=== PATIENT | female | born 1955 | race Caucasian/White ===

== ENCOUNTER → 2017-01-12 | Outpatient (CLI) | payer OTHER ==
--- NOTE | 2017-01-12 10:18 | MM ---
Reason for exam: screening (asymptomatic). Baseline mammogram. History: Patient is postmenopausal. Physical Findings: Nurse did not find any significant physical abnormalities on exam. MG Screening Mammo w CAD Bilateral CC and MLO view(s) were taken. There are scattered fibroglandular densities. Finding #1: Architectural distortion in the upper quadrant, anterior middle position of the right breast. Finding #2: There are typically benign round calcifications in both breasts. ASSESSMENT: Incomplete: need additional imaging evaluation, BI-RAD 0 RECOMMENDATION: Special view mammogram and ultrasound of the right breast. [facility] will attempt to contact patient to return for supplemental views and ultrasound.
== END | disposition home or self-care (01) ==
LOC: RADMAMWWP 09:19
PROVIDERS: ATTEND Family Medicine
DX: Z12.31 Encounter for screening mammogram for malignant neoplasm of breast (principal); R92.2 Inconclusive mammogram

== ENCOUNTER → 2017-01-16 | Outpatient (CLI) | payer OTHER ==
--- NOTE | 2017-01-16 08:39 | MM ---
Reason for exam: additional evaluation requested from abnormal screening. Last mammogram was performed less than 1 month ago. History: Patient is postmenopausal. Physical Findings: Nurse did not find any significant physical abnormalities on exam. MG Work Up Mamm w CAD RT Spot compression CC and spot compression MLO view(s) were taken of the right breast. Prior study comparison: January 12, 2017, bilateral MG screening mammo w CAD. Spiculated masses x 2 upper central right breast. These results were verbally communicated with the patient and result sheet given to the patient on 01/16/17. ASSESSMENT: Incomplete: need additional imaging evaluation, BI-RAD 0 RECOMMENDATION: Ultrasound of the right breast.
--- NOTE | 2017-01-16 08:42 | USB ---
Reason for exam: additional evaluation requested from abnormal screening. History: Patient is postmenopausal. US Breast Workup Limited RT Right breast ultrasound demonstrates a 1.1 x 0.7 x 0.8cm irregular, spiculated, solid, hypoechoic lesion with shadowing at 12 o'clock for which a biopsy is recommended and a 0.9 x 0.6 x 0.8cm irregular, spiculated, solid, hypoechoic lesion with shadowing at 1 o'clock for which a biopsy is recommended. These results were verbally communicated with the patient and result sheet given to the patient on 01/16/17. ASSESSMENT: Highly suggestive of malignancy, BI-RAD 5 RECOMMENDATION: Ultrasound core biopsy of the right breast. (x 2) Called Dr. Hagen with mammographic findings and has scheduled an appointment for the patient for 01/19/17 at 11:[address] Felix. PRELIMINARY REPORT CALLED AND FAXED TO DR. FELIX ON 01/16/17 AT 300/TP.
== END | disposition home or self-care (01) ==
LOC: RADMAMWWP 06:57
PROVIDERS: ATTEND Family Medicine
DX: R92.8 Other abnormal and inconclusive findings on diagnostic imaging of breast (principal)
CPT/HCPCS: 76642; G0206

== ENCOUNTER → 2017-01-24 | Day surgery (SDC) | payer OTHER ==
[~2017-01-24] MED LIST: BACITRACIN OINT 1 EACH PACKET TOPICAL ONE; LIDOCAINE 1% INJ 10MG/ML (20 ML MDV) ONE; LIDOCAINE 1%-EPI 1:100,000 20 ML VIAL ONE; SODIUM BICARB 4% 5 ML VIAL (0.48 MEQ/ML) ONE
--- NOTE | 2017-01-24 11:03 | USB ---
EXAMINATION TYPE: US biopsy breast VAD RT (2 sites), US biopsy breast RT axilla, MG diagnostic post biopsy mammo RT wo CAD DATE OF EXAM: 01/24/2017 9:53 AM CLINICAL HISTORY: 61-year-old female R92.8 abn mammo. TECHNIQUE: Ultrasound guided core biopsy of 2 sites in the superior right breast as well as a right axillary lymph node. COMPARISON: 01/12/2017 and 01/16/2017. FINDINGS: The procedure of ultrasound guided core biopsy was explained to the patient. Benefits, alternatives, and risks were discussed. An informed consent was then obtained. The patient was placed in supine positioning for imaging and for the procedure. The overlying skin was prepped and draped in usual sterile fashion. Lidocaine buffered with bicarbonate was used as anesthetic into the skin and subcutaneous tissue up to area of concern in the right breast. 1.) 12:00 suspicious lesion -- Under ultrasound guidance, a 13-gauge vacuum- assisted Mammotome Elite biopsy gun was used to obtain 4 core samples. Following this, a coil clip was left in lesion. 2.) 1:00 suspicious lesion -- Under ultrasound guidance, a 13-gauge vacuum- assisted Mammotome Elite biopsy gun was used to obtain 6 core samples. Following this, a ribbon clip was left in lesion. 3.) Focal cortical nodularity right axillary lymph node --for deeper anesthesia , lidocaine/epinephrine mixture was utilized to minimize bleeding. Under ultrasound guidance, a 13-gauge vacuum-assisted Mammotome Elite biopsy gun was used to obtain 6 core samples. Following this, a wing clip was left in lesion. The patient tolerated the procedure well without any immediate complication. The patient was kept in the radiology department for short stay after the procedure and then discharged home in stable condition. Postprocedure mammogram shows the coil and ribbon clips in place. These are located approximately 1.9 cm away from each other. The wing clip is not seen at the axilla. IMPRESSION: Successful, uncomplicated ultrasound guided core biopsy of 3 sites in the right breast; full pathology results to follow. a.) suspicious right 12:00 b.) suspicious right 1:00 c.) equivocal nodular right axillary node cortex Pathology Results: Malignant A. 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 SEE SURGICAL PATHOLOGY CANCER CASE SUMMARY AND COMMENT. B. BREAST, RIGHT ONE O'CLOCK, CORE BIOPSY: WELL DIFFERENTIATED INVASIVE DUCTAL CARCINOMA. FOCAL ATYPICAL DUCTAL HYPERPLASIA. SEE SURGICAL PATHOLOGY CANCER CASE SUMMARY AND COMMENT. C. RIGHT AXILLA, CORE BIOPSY: FRAGMENTS OF A BENIGN LYMPH NODE. CK7 AND MARISSA IMMUNOPEROXIDASE STAINS ARE CONFIRMATORY (CONTROLS APPROPRIATE). Recommendation Surgical consult of the right breast. MTDD
== END ==
LOC: RADUSWWP 07:14
PROVIDERS: ATTEND Surgery
DX: C50.811 Malignant neoplasm of overlapping sites of right female breast (principal); C50.211 Malignant neoplasm of upper-inner quadrant of right female breast; N60.91 Unspecified benign mammary dysplasia of right breast; R92.8 Other abnormal and inconclusive findings on diagnostic imaging of breast
CPT/HCPCS: 38505; 88305; 88342; 88341; 19083; 19084; G0206; A4648; J2001; 71020; 99212

== ENCOUNTER → 2017-02-01 | Outpatient (CLI) | payer OTHER ==
--- NOTE | 2017-02-01 10:52 | XR ---
EXAMINATION TYPE: XR chest 2V DATE OF EXAM: 02/01/2017 10:42 AM COMPARISON: NONE TECHNIQUE: PA and lateral views submitted. HISTORY: Cough FINDINGS: The lungs are clear and there is no pneumothorax, pleural effusion, or focal pneumonia. Hyperinflati on suggests COPD. Degenerative change of the spine. IMPRESSION: 1. No acute process.
== END | disposition home or self-care (01) ==
LOC: RADXRMAIN 10:30
PROVIDERS: ATTEND Surgery
DX: R05 Cough (principal)
CPT/HCPCS: 71020

== ENCOUNTER 2017-02-20 08:51 | Day surgery (SDC) | payer OTHER ==
[2017-02-15 12:53] VITALS: BMI 20.5
[~2017-02-20 08:51] MED LIST changes: -BACITRACIN OINT 1 EACH PACKET TOPICAL ONE; +DEXAMETHASONE SOD PHOSPHATE 10 MG/ML 1 ML VIAL IV ONE; +HEPARIN SODIUM,PORCINE 5,000 UNIT/ML 1 ML VIAL SQ ONE; +HYDROmorphone 1 MG/ML 1 ML SYRINGE IVP PRN; +LACTATED RINGERS 1,000 ML IV SCH; -LIDOCAINE 1% INJ 10MG/ML (20 ML MDV) ONE; -LIDOCAINE 1%-EPI 1:100,000 20 ML VIAL ONE; +METHYLENE BLUE 50 MG/10 ML AMPUL ONE; +MIDAZOLAM 2 MG/2 ML VIAL IV PRN; +ONDANSETRON 4 MG/2 ML VIAL IVP ONE; +Pre Op ABX Message 1 EACH MISC MISCELLANE ONE; -SODIUM BICARB 4% 5 ML VIAL (0.48 MEQ/ML) ONE
[2017-02-20] MEDS ORDERED: SODIUM BICARB 4% 5 ML VIAL (0.48 MEQ/ML) MISCELLANE ONE (10:12)
[2017-02-20] MEDS ORDERED: LIDOCAINE 1% INJ 10MG/ML (20 ML MDV) SQ ONE (10:12)
--- NOTE | 2017-02-20 10:49 | NM ---
EXAMINATION TYPE: NM sentinel node injection DATE OF EXAM: 02/20/2017 10:42 AM COMPARISON: NONE HISTORY: Right breast carcinoma TECHNIQUE AND FINDINGS: The procedure of sentinel lymph node injection was explained to the patient. The benefits, alternatives, and risks were discussed. An informed consent was then obtained. Overlying skin is cleaned with sterile alcohol. Lidocaine buffered with bicarbonate was used as anes thetic into the skin and subcutaneous tissue surrounding the nipple. Following this, 550 uCi Tc 99m Filtered Sulfur Colloid was injected into 4 equivalent doses at 12, 3, 6, and 9:00 position surroundi ng the right nipple intradermally. The injection sites were massaged by nuclear powerplant supervisor for 10 minutes after injection. T he patient tolerated the procedure well without any immediate complication. The patient was kept in the radiology department for short stay after the procedure and then taken to surgery for surgical pr ocedure what is presumed intraoperative gamma probe will be used for sentinel lymph node detection. IMPRESSION: Right breast radiotracer injection for sentinel node localization as above.
[2017-02-20] MEDS ORDERED: MIDAZOLAM 2 MG/2 ML VIAL ONE (12:55)
[2017-02-20] MEDS ORDERED: SUCCINYLCHOLINE CHLORIDE 100 MG/5 ML SYR IV ONE (12:55)
[2017-02-20] MEDS ORDERED: PHENYLEPHRINE-0.9% NACL SYG 1 MG/10 ML SYRINGE ONE (12:55)
[2017-02-20] MEDS ORDERED: ePHEDrine 50 MG/ML 1 ML AMP ONE (12:55)
[2017-02-20] MEDS ORDERED: fentaNYL (PF) 50 MCG/ML 2 ML AMP ONE (12:55)
[2017-02-20] MEDS ORDERED: PROPOFOL 10 MG/ML 20 ML VIAL IV ONE (12:55)
[2017-02-20] MEDS ORDERED: HYDROmorphone (PF) 1 MG/ML ONE (12:55)
[2017-02-20] MEDS ORDERED: HEPARIN SODIUM,PORCINE 5,000 UNIT/ML 1 ML VIAL SQ ONE (12:56)
[2017-02-20] MEDS ORDERED: METHYLENE BLUE 10 MG/ML 1 ML VIAL MISCELLANE ONE (13:15)
[2017-02-20] MEDS ORDERED: SODIUM CHLORIDE 0.9% 100 ML with ceFAZolin 2,000 MG IV ONE ×2 (13:24)
--- NOTE | 2017-02-20 14:09 | MM ---
EXAMINATION TYPE: MG pre op needle loc RT DATE OF EXAM: 02/20/2017 10:24 AM COMPARISON: NONE CLINICAL HISTORY: Abnormal right breast biopsy TECHNIQUE: Needle localization with wire placement and surgical excision of area of concern in the right breast. FINDINGS: The procedure of needle localization with wire placement and than surgical excision was explained to the patient. Benefits, alternatives, and risks were discussed. An informed consent was then obtained. The shortest pathway for procedure was chosen. Shortest pathway was superior approach. The overlying skin was prepped and draped in usual sterile fashion. Lidocaine buffered with bicarbonate was used as anesthetic into the skin and subcutaneous tissue up to the level of area of concern. A 7 cm needle was used for each biopsy clip marker. The 2 clips were bracketed as requested by the surgeon. It was placed via a superior approach under mammographic guidance. Subsequent 90 degrees mammogram show the needles to be in satisfactory position relative to the targeted area. At this point, wire was placed and the needle was withdrawn. The wire was fixed to patient's skin. Images were marked for surgeon. The patient tolerated the procedure well without any immediate complication. The patient was kept in the radiology department for short stay after the procedure and then taken to surgery for surgical excision. Targeted to site biopsy clip and wire are identified in specimen mammogram. The patient was kept in hospital for short stay after the procedure and then discharged home in stable condition. IMPRESSION: Successful, uncomplicated needle localization with wire placement and surgical excision of 2 site biopsy clips in the right breast, full pathology results to follow. Pathology Results: Malignant A. LYMPH NODE, SENTINEL #1, BIOPSY: TWO LYMPH NODES NEGATIVE FOR METASTASIS, CYTOKERATIN 7 AND MARISSA IMMUNOHISTOCHEMICAL STAINS ARE CONFIRMATORY (CONTROLS APPROPRIATE). B. LYMPH NODE, SENTINEL #2, BIOPSY: TWO LYMPH NODES NEGATIVE FOR METASTASIS, CYTOKERATIN 7 AND MARISSA IMMUNOHISTOCHEMICAL STAINS ARE CONFIRMATORY (CONTROLS APPROPRIATE). C. LYMPH NODE, PALPABLE, BIOPSY: THREE LYMPH NODES NEGATIVE FOR METASTASIS, CYTOKERATIN 7 AND MARISSA IMMUNOHISTOCHEMICAL STAINS ARE CONFIRMATORY (CONTROLS APPROPRIATE). FOCAL FEATURES CONSISTENT WITH BIOPSY SITE CHANGE. ADDENDUM REPORT D. 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 DCIS INVOLVES THE MARGINS MULTIFOCALLY. SEE SURGICAL PATHOLOGY CANCER CASE SUMMARY AND COMMENT. E. BREAST, RIGHT, NEW LATERAL MARGIN: DUCTAL CARCINOMA IN SITU MUCH LESS THAN 1 FROM THE NEW LATERAL MARGIN, SEE COMMENT. FIBROCYSTIC CHANGES AND A SMALL INTRADUCTAL PAPILLOMA. F. BREAST, RIGHT, NEW INFERIOR MARGIN: FOCAL ATYPICAL DUCTAL HYPERPLASIA AND FIBROCYSTIC CHANGES INCLUDING FIBROADENOMATOID HYPERPLASIA. SEE COMMENT. Recommendation Surgical consult of the right breast. KELI
[2017-02-20] MEDS ORDERED: LACTATED RINGERS 1,000 ML IV ONE (14:50)
--- NOTE | 2017-02-20 15:03 | P.OP ---
Date of Procedure: 02/20/17 Preoperative Diagnosis: Breast cancer right Postoperative Diagnosis: Same Procedure(s) Performed: Lymphatic mapping of the right axilla, right lumpectomy with oncoplastic tissue rearrangement and biozorb placement, sentinel node biopsy Anesthesia: BRENT Surgeon: Adelita Felix Estimated Blood Loss (ml): 5 IV fluids (ml): 700 Pathology: other (Right breast lumpectomy specimen, sentinel lymph node) Condition: stable Disposition: PACU Indications for Procedure: Right breast positive core biopsy for cancer at 12:00 and 1:00 Operative Findings: Dense breast tissue Description of Procedure: Patient was taken to the operating room and following induction of anesthesia the periareolar area was prepped using alcohol. 5 mL of half-strength methylene blue was injected into the periareolar tissue and the breast was massaged. Following this the breast was prepped and draped in a sterile fashion. The area of the lumpectomy was addressed first. An incision was made near the area of the needles and wide excision was performed around these needles. The breast tissue was interrogated using the margin probe and the lateral margin was positive lateral margin was obtained. Following this a new inferior margin was obtained as well. Both of these areas were painted. The original specimen was painted for orientation. It was sent to x-ray and confirmation area of concern about removed was obtained. Following this after assured that hemostasis was attained onco-PLASTIC tissue techniques were utilized to free the tissue from the underlying skin and subcutaneous tissue superiorly and inferiorly. This was done approximately 4 cm cephalad and 3 cm inferiorly additionally the length of the tissue plane was approximately 5 cm. Therefore approximately 35 cm of tissue was freed. The lateral tissues were reapproximated using 3-0 Vicryl suture. A biozorb sizing device was utilized and a 3 x 2 cm BioSorb was chosen for placement. This was placed in the opening a pocket and secured in place using 3-0 Vicryl suture. The breast tissue was closed over this area using 3-0 Vicryl suture. Should be noted that the original dissection was performed down to the pectoralis muscle of the chest wall. The skin was then closed using 4-0 Monocryl. This is followed by closure with 3-0 nylon suture. The axilla was approached. The neoprobe was used to identify the brachial incision. A small incision was made and carried into the axillary tissue. 2 axillary lymph nodes were identified. Axillary node #1 had a 10 second count of 2947 and was blue axillary node #210 second count of 3245 was blue also. Please note that there was a palpable lymph node identified and this was removed as well. Frozen section on the lymph nodes were negative for cancer. After assured that hemostasis was attained. 3-0 vicryl was used to close the deep tissues. The skin was closed using 4-0 Monocryl. The patient tolerated the procedure in stable condition. All instrument and sponge counts were correct at the end of the case.
--- NOTE | 2017-02-20 15:04 | P.DS ---
Providers Attending physician: Adelita Felix Primary care physician: Isaias Hagen Plan - Discharge Summary Discharge Medication List ALPRAZolam [Xanax] 0.25 - 1 tab PO BID PRN 02/15/17 [History] Aspirin [Adult Low Dose Aspirin EC] 81 mg PO DAILY 02/15/17 [History] Citalopram Hydrobromide [CeleXA] 10 mg PO HS 02/15/17 [History] Levothyroxine Sodium [Synthroid] 50 mcg PO MOTUWETHFR 02/15/17 [History] Levothyroxine Sodium [Synthroid] 50 mcg PO SUSA 02/15/17 [History] Losartan/Hydrochlorothiazide [Losartan-Hctz 100-25 mg Tab] 1 each PO 1700 [History] Follow up Appointment(s)/Referral(s): Adelita Felix MD [STAFF PHYSICIAN] - 1 Week Activity/Diet/Wound Care/Special Instructions: Do not drive until seen by Dr. Stewart Patient may shower after 48 hours Wear bra at all times Discharge Disposition: HOME SELF-CARE
[2017-02-20 15:23] VITALS: TEMP 98.6
[2017-02-20 15:33] VITALS: RESP 18
[2017-02-20] MEDS ORDERED: KETOROLAC 30 MG/ML 1 ML VIAL IVP ONE (15:40)
[2017-02-20] MEDS ORDERED: PROMETHAZINE INJ 25 MG/ML 1 ML VIAL IVPB ONE ×2 (16:38→16:41)
[2017-02-20] MEDS ORDERED: HYDROcodone/APAP 5-325MG 1 EACH TAB PO ONE (16:50)
[2017-02-20 17:43] VITALS: BP 126/48; PULSE 68
== END 2017-02-20 17:43 | disposition home or self-care (01) ==
LOC: OR 08:51
PROVIDERS: ATTEND Surgery
DX: C50.811 Malignant neoplasm of overlapping sites of right female breast (principal); R92.8 Other abnormal and inconclusive findings on diagnostic imaging of breast; Z80.3 Family history of malignant neoplasm of breast; R05 Cough; I10 Essential (primary) hypertension; F32.9 Major depressive disorder, single episode, unspecified; F41.1 Generalized anxiety disorder; E03.9 Hypothyroidism, unspecified; Z79.899 Other long term (current) drug therapy; F17.200 Nicotine dependence, unspecified, uncomplicated
CPT/HCPCS: 88305; 88342; 88331; 88332; 88307; 88341; 76098; 19281; 19282; 38792; 19301; 15777; 38525; C1713; A9541; J2250; J1644; J1100; J2550; J2405; J0690; J2001; J3010; J1885; J1170; J2370; J0330; J2704; Q9968

== ENCOUNTER 2017-03-27 09:43 | Observation (INO) | payer OTHER ==
[2017-03-23 12:53] VITALS: BMI 20.7
[~2017-03-27 09:43] MED LIST changes: -HYDROmorphone 1 MG/ML 1 ML SYRINGE IVP PRN; +LIDOCAINE 1% 20 ML VIAL (10MG/ML) FOR IV START INTRADERMA PRN; -METHYLENE BLUE 50 MG/10 ML AMPUL ONE; +SCOPOLAMINE 1.5MG/72HR PATCH TRANSDERM ONE
[2017-03-27] MEDS ORDERED: HEPARIN SODIUM,PORCINE 5,000 UNIT/ML 1 ML VIAL SQ ONE (11:47)
[2017-03-27] MEDS ORDERED: ONDANSETRON 4 MG/2 ML VIAL ONE (11:55)
[2017-03-27] MEDS ORDERED: fentaNYL (PF) 50 MCG/ML 2 ML AMP ONE (11:55)
[2017-03-27] MEDS ORDERED: SUCCINYLCHOLINE CHLORIDE VIAL 200 MG/10 ML VIAL IV ONE (11:55)
[2017-03-27] MEDS ORDERED: MIDAZOLAM 2 MG/2 ML VIAL ONE (11:55)
[2017-03-27] MEDS ORDERED: LIDOCAINE 1% INJ 10MG/ML (20 ML MDV) ONE (11:55)
[2017-03-27] MEDS ORDERED: PROPOFOL 10 MG/ML 20 ML VIAL IV ONE (11:55)
[2017-03-27] MEDS ORDERED: SODIUM CHLORIDE 0.9% 50 ML with ceFAZolin 1,000 MG IV ONE ×2 (12:03)
[2017-03-27] MEDS ORDERED: LACTATED RINGERS 1,000 ML IV ONE ×2 (12:28)
--- NOTE | 2017-03-27 13:07 | P.OP ---
Date of Procedure: 03/27/17 Preoperative Diagnosis: Right breast multifocal cancer Postoperative Diagnosis: Same Procedure(s) Performed: Right simple mastectomy Anesthesia: BRENT Surgeon: Adelita Felix Estimated Blood Loss (ml): 40 IV fluids (ml): 700 Pathology: other (Right breast) Condition: stable Disposition: PACU Indications for Procedure: Patient with a lumpectomy revealing multifocal breast cancer positive DCIS at margins Operative Findings: Fibrocystic breast tissue Description of Procedure: Patient is a 61-year-old white female who is status post right breast lumpectomy for biopsy-proven invasive ductal carcinoma. The tumor was noted at 2 sites in the breast and the patient wanted to have an attempt at a lumpectomy. The sites were somewhat close to each other. She underwent a lumpectomy however pathology revealed DCIS at the margins. After discussion and presentation at tumor board it was determined that she would undergo a simple mastectomy. Patient was taken to the operating room and following induction of general anesthesia the right breast was prepped and draped in a sterile fashion. Superior and inferior skin flaps were developed. These were carried down to the chest wall being careful to maintain hemostasis using the electrocautery device and the LigaSure. The breast was taken from medial to lateral from off the fascia of the chest wall. After we were assured that hemostasis was attained the wound was well irrigated. The ALLY drain was placed. The skin was then reapproximated with a deep tissues being reapproximated using 3-0 Vicryl interrupted sutures. The skin was closed using 4-0 Monocryl. The drain was secured using a nylon suture. The patient tolerated the procedure in stable condition. All instrument and sponge counts were correct at the end of the case.
[2017-03-27] MEDS ORDERED: NALOXONE 0.4 MG/ML 1 ML VIAL IV PRN (13:08)
[2017-03-27] MEDS ORDERED: HYDROmorphone 1 MG/ML 1 ML SYRINGE IV PRN (13:08)
[2017-03-27] MEDS ORDERED: HYDROcodone/APAP 5-325MG 1 EACH TAB PO PRN (13:08)
[2017-03-27] MEDS: HYDROmorphone 1 MG/ML 1 ML SYRINGE IVP PRN ×3 (13:39→13:59)
[2017-03-27] MEDS ORDERED: LEVOTHYROXINE 50 MCG TAB PO SCH (17:00)
[2017-03-27] MEDS ORDERED: HYDROCHLOROTHIAZIDE 12.5 MG CAP PO SCH (17:30)
[2017-03-27] MEDS: ONDANSETRON 4 MG/2 ML VIAL IVP PRN (18:01)
[2017-03-27] MEDS: DEXTROSE 5%-0.45% NACL 1,000 ML IV SCH (18:03)
[2017-03-27] MEDS: HEPARIN SODIUM,PORCINE 5,000 UNIT/ML 1 ML VIAL SQ SCH (18:12)
[2017-03-27] MEDS: LOSARTAN 50 MG TAB PO SCH ×2 (18:14→18:16)
[2017-03-28] MEDS: ONDANSETRON 4 MG/2 ML VIAL IVP PRN (00:02)
[2017-03-28] MEDS: HEPARIN SODIUM,PORCINE 5,000 UNIT/ML 1 ML VIAL SQ SCH ×2 (00:02→09:12)
[2017-03-28 00:15] VITALS: PULSE 76
[2017-03-28] MEDS: ACETAMINOPHEN TAB 325 MG TAB PO PRN ×2 (04:06→09:29)
[2017-03-28] MEDS: DEXTROSE 5%-0.45% NACL 1,000 ML IV SCH (04:06)
[2017-03-28 09:03] VITALS: BP 120/71; RESP 16; TEMP 98.1
--- NOTE | 2017-03-28 09:33 | P.DS ---
Providers Date of admission: 03/27/17 18:30 Expected date of discharge: 03/28/17 Attending physician: Adelita Felix Consults: 03/27/17 13:10 Consult Physician Routine Consulting Provider: Gokul Barney Consult Reason/Comments: medical managment Do you want consulting provider notified?: Yes Primary care physician: [facility] Course: Patient is a 61-year-old white female who is status post right breast lumpectomy for biopsy-proven invasive ductal carcinoma. The tumor was noted at 2 sites in the breast and the patient wanted to have an attempt at a lumpectomy. The sites were somewhat close to each other. She underwent a lumpectomy however pathology revealed DCIS at the margins. After discussion and presentation at tumor board it was determined that she would undergo a simple mastectomy. March 27 the patient did undergo a right simple mastectomy for right breast multifocal cancer Impression discharge diagnosis Status post right breast lumpectomy biopsy-proven invasive ductal carcinoma Status post right simple mastectomy for multifocal breast cancer positive DCIS at the margins Depressive disorder nonspecified Hypothyroid on supplements Hypertension The above dictated assessment and findings were discussed with dr tee Agustin and the plan of care have been dictated as directed. Hazel Whiteside nurse practitioner acting as a scribe for Dr. Mcgraw Plan - Discharge Summary New Discharge Prescriptions: HYDROcodone/APAP 5-325MG [Cana 5-325] 1 each PO Q4HR PRN #30 tab PRN Reason: Moderate Pain Discharge Medication List ALPRAZolam [Xanax] 0.5 tab PO BID PRN 02/15/17 [History] Aspirin [Adult Low Dose Aspirin EC] 81 mg PO DAILY 02/15/17 [History] Citalopram Hydrobromide [CeleXA] 10 mg PO HS 02/15/17 [History] Levothyroxine Sodium [Synthroid] 50 mcg PO MOTUWETHFR 02/15/17 [History] Levothyroxine Sodium [Synthroid] 75 mcg PO SUSA 02/15/17 [History] Losartan/Hydrochlorothiazide [Losartan-Hctz 100-12.5 mg Tab] 1 tab PO AC-SUPPER 03/23/17 [History] Acetaminophen Tab [Tylenol] 650 mg PO Q4HR PRN #0 tab 03/28/17 [Rx] HYDROcodone/APAP 5-325MG [Cana 5-325] 1 each PO Q4HR PRN #30 tab 03/28/17 [Rx] Follow up Appointment(s)/Referral(s): Adelita Felix MD [STAFF PHYSICIAN] - 1 Week Activity/Diet/Wound Care/Special Instructions: Care of the Xander-Goodman drain instructions be provided Discharge Disposition: HOME SELF-CARE
--- NOTE | 2017-03-28 09:42 | CONS ---
DATE OF CONSULTATION: REASON FOR CONSULTATION: Recommendation regarding antihypertensive medications. Patient is a 61-year-old female admitted with right breast lumpectomy for invasive ductal carcinoma and patient successfully underwent surgery. Patient is ( ) denied any fever, chills. Denied any nausea, vomiting, dysuria. REVIEW OF SYSTEMS: All other systems were reviewed and were negative. Home medications include hydrochlorothiazide, losartan, levothyroxine, citalopram, aspirin and alprazolam. PAST MEDICAL HISTORY: Significant for invasive ductal carcinoma as mentioned above, hypertension, hypothyroidism and patient underwent tubal ligation surgery, tonsillectomy, and lumpectomy. Anxiety, depression. SOCIAL HISTORY: Patient smokes 1 pack per day. Denied any alcohol abuse or any drug abuse. FAMILY HISTORY: Denied any family history of hypertension, diabetes mellitus or coronary artery disease. PHYSICAL EXAMINATION: VITAL SIGNS: Temperature 98.1, pulse of 78, respiratory rate of 16, blood pressure is 142/74, saturating at 94% on room air. BREAST EXAMINATION: Defer to Surgical Services as it ( ). GENERAL: The patient is alert and oriented x3, not in any acute distress. Well developed, well nourished. HEENT: Pupils are round and equally reacting to light. EOMI. No scleral icterus. No conjunctival pallor. Normocephalic, atraumatic. No pharyngeal erythema. No thyromegaly. CARDIOVASCULAR: S1 and S2 present. No murmurs, rubs, or gallops. PULMONARY: Chest is clear to auscultation, no wheezing or crackles. ABDOMEN: Soft, nontender, nondistended, normoactive bowel sounds. No palpable organomegaly. MUSCULOSKELETAL: No joint swelling or deformity. EXTREMITIES: No cyanosis, clubbing, or pedal edema. NEUROLOGICAL: Gross neurological examination did not reveal any focal deficits. SKIN: No rashes. LABORATORY DATA: None available. ASSESSMENT AND PLAN: 1. Postoperative day 0 status post lumpectomy. 2. Deep venous thrombosis prophylaxis and pain management as per Primary Services. 3. Hypertension, to prevent perioperative hypertension, hold off hydrochlorothiazide and losartan. Patient is on IV fluids at this time. Will continue. 4. Hypothyroidism, continue levothyroxine. Will follow the patient on an as-needed basis. [facility]
[2017-03-31] MEDS ORDERED: LEVOTHYROXINE 50 MCG TAB PO SCH (14:25)
[2017-03-31] MEDS ORDERED: LEVOTHYROXINE 75 MCG TAB PO SCH (17:00)
== END 2017-03-28 10:26 | disposition home or self-care (01) ==
LOC: OR 09:43 → 6PED 13:19 → OR 18:36
PROVIDERS: ADMIT Surgery; ATTEND Surgery
DX: D05.11 Intraductal carcinoma in situ of right breast (principal); F32.9 Major depressive disorder, single episode, unspecified; E03.9 Hypothyroidism, unspecified; I10 Essential (primary) hypertension; F17.200 Nicotine dependence, unspecified, uncomplicated; Z79.899 Other long term (current) drug therapy; Z79.82 Long term (current) use of aspirin; F41.9 Anxiety disorder, unspecified; F39 Unspecified mood [affective] disorder
CPT/HCPCS: 19303; 96361 ×2; 96374; 88307; G0378 ×2; J2250; J0330; J1644 ×2; J1100; J2405 ×2; J2001; J3010; J1170; J0690; J2704

== ENCOUNTER → 2017-06-11 | Outpatient (CLI) | payer OTHER ==
[2017-06-11 08:02] LABS: Basophils # (A) 0.1 k/uL (0-0.2); Basophils % (A) 1 %; CHCM 33.4; Eosinophils # (A) 0.1 k/uL (0-0.7); Eosinophils % (A) 2 %; HCT 39.3 % (34.0-46.0); HDW 2.03; HGB 13.1 gm/dL (11.4-16.0); Luc # (Auto) 0.13; Luc % (Auto) 3; Lymphocytes # (A) 1.6 k/uL (1.0-4.8); Lymphocytes % (A) 30 %; MCH 33.1 pg (25.0-35.0); MCHC 33.3 g/dL (31.0-37.0); MCV 99.3 fL (80.0-100.0); Mean Platelet Volume 6.8; Monocytes # (A) 0.4 k/uL (0-1.0); Monocytes % (A) 7 %; Neutrophils # (A) 3.1 k/uL (1.3-7.7); Neutrophils % (A) 58 %; RBC 3.96 m/uL (3.80-5.40); RDW 12.7 % (11.5-15.5); WBC 5.3 k/uL (3.8-10.6)
== END | disposition home or self-care (01) ==
LOC: LABPAT 07:11
PROVIDERS: ATTEND Obstetrics & Gynecology
DX: Z01.810 Encounter for preprocedural cardiovascular examination (principal); Z01.812 Encounter for preprocedural laboratory examination
CPT/HCPCS: 85025; 93005

== ENCOUNTER 2017-06-18 06:36 | Day surgery (SDC) | payer OTHER ==
[2017-06-11 10:47] VITALS: BMI 20.5
--- NOTE | 2017-06-17 07:06 | P.HPOB ---
History of Present Illness H&P Date: 06/17/17 Chief Complaint: High-grade cervical dysplasia. This patient is a pleasant 61-year-old 3 para 3 female who was seen initially in my office on May 21 in referral for a high-grade Pap smear which she had on January 04. Patient's history is such that she was recently diagnosed with right breast cancer and did have a Pap smear done in December by Dr. Hagen. Pap smear showed high-grade changes. Colposcopy revealed a 1 cm cervical polyp which was removed and also multiple biopsies showing KRISTINE-2 and KRISTINE-3 including the endocervical curettings. Patient now presents for dilation and curettage with colposcopy and LEEP excision of the ectocervix and endocervix. Review of Systems Constitutional: Denies chills, Denies fever Cardiovascular: Denies chest pain, Denies shortness of breath Respiratory: Denies cough Gastrointestinal: Denies abdominal pain, Denies diarrhea, Denies nausea, Denies vomiting Genitourinary: Reports as per HPI Menstruation: Reports as per HPI Musculoskeletal: Denies myalgias Past Medical History Past Medical History: Cancer, Hypertension, Thyroid Disorder Additional Past Medical History / Comment(s): Breast cancer- no blood draws or b /p rt arm. History of Any Multi-Drug Resistant Organisms: None Reported Past Surgical History: Breast Surgery, Tonsillectomy, Tubal Ligation Additional Past Surgical History / Comment(s): rt breast biopsy, rt breast lumpectomy, rt mastectomy-04/11. Biopsy of right arm yrs ago. Past Anesthesia/Blood Transfusion Reactions: Postoperative Nausea & Vomiting ( PONV) Past Psychological History: No Psychological Hx Reported Smoking Status: Current every day smoker Past Alcohol Use History: None Reported Past Drug Use History: None Reported - Past Family History Mother Family Medical History: No Reported History Medications and Allergies Home Medications Medication Instructions Recorded Confirmed Type ALPRAZolam [Xanax] 0.5 tab PO BID PRN 02/15/17 06/11/17 History Aspirin [Adult Low Dose Aspirin EC] 81 mg PO DAILY 02/15/17 06/11/17 History Citalopram Hydrobromide [CeleXA] 10 mg PO HS 02/15/17 06/11/17 History Levothyroxine Sodium [Synthroid] 50 mcg PO MOTUWETHFR 02/15/17 06/11/17 History Levothyroxine Sodium [Synthroid] 75 mcg PO SUSA 02/15/17 06/11/17 History Losartan/Hydrochlorothiazide 1 tab PO AC-SUPPER 03/23/17 06/11/17 History [Losartan-Hctz 100-12.5 mg Tab] Calcium Carbonate/Vitamin D3 1 each PO DAILY 06/11/17 06/11/17 History [Calcium 600-Vit D3 800 Tab] Letrozole [Femara] 2.5 mg PO HS 06/11/17 06/11/17 History Allergies Allergy/AdvReac Type Severity Reaction Status Date / Time No Known Allergies Allergy Verified 06/11/17 10:24 Exam - OBG Physical Exam Abdomen: bowel sounds normal, no diffuse tenderness, no bruit present, no guarding noted, no hepatomegaly, no splenomegaly, no mass Vulva: both: normal Vagina: normal moisture, no discharge Cervix: lesion Uterus: normal size Results Colposcopy in the office shows KRISTINE-2 to KRISTINE-3 of an endocervical polyp, endocervical curettings, and ectocervical biopsies. Assessment and Plan (1) High grade squamous intraepithelial cervical dysplasia Narrative/Plan: This is a pleasant 61-year-old 3 para 3 female with high-grade cervical dysplasia of the endo-and ectocervix. Plan is dilation and curettage with colposcopy and LEEP excision of the ectocervix and endocervix. Patient does understand the surgery and risks including risks of infection, bleeding, possible uterine perforation. All the patient's questions are answered and a written consent is obtained. Status: Acute
[~2017-06-18 06:36] MED LIST changes: -HEPARIN SODIUM,PORCINE 5,000 UNIT/ML 1 ML VIAL SQ ONE; +HYDROmorphone 1 MG/ML 1 ML SYRINGE IVP PRN; -MIDAZOLAM 2 MG/2 ML VIAL IV PRN
[2017-06-18] MEDS ORDERED: MIDAZOLAM 2 MG/2 ML VIAL ONE (07:19)
[2017-06-18] MEDS ORDERED: LIDOCAINE 1% INJ 10MG/ML (20 ML MDV) ONE (07:19)
[2017-06-18] MEDS ORDERED: KETOROLAC 30 MG/ML 1 ML VIAL ONE (07:19)
[2017-06-18] MEDS ORDERED: PROPOFOL 10 MG/ML 20 ML VIAL IV ONE (07:19)
[2017-06-18] MEDS ORDERED: ePHEDrine 50 MG/ML 1 ML AMP ONE (07:19)
[2017-06-18] MEDS ORDERED: FERRIC SUBSULFATE (MONSELS) JAR TOPICAL ONE (07:38)
[2017-06-18 08:08] VITALS: RESP 16; TEMP 97.8
--- NOTE | 2017-06-18 08:09 | P.OP ---
Date of Procedure: 06/18/17 Preoperative Diagnosis: High grade cervical dysplasia. Postoperative Diagnosis: Same Procedure(s) Performed: #1: Dilation and curettage. #2: LEEP excision of the ectocervix endocervix. Implants: Anesthesia: MAC Surgeon: Dillan Estevez Estimated Blood Loss (ml): 5 Urine output (ml): 10 Pathology: other (Uterine curettings and endocervix and ectocervix.) Condition: stable Disposition: PACU Indications for Procedure: Please see dictated H&P for intimate details of this patient's admission. Brief summary this patient is a pleasant 61-year-old female referred to me for high-grade Pap smear. Patient had a colposcopy that showed multiple areas of KRISTINE 2 and KRISTINE 3. Patient now presents for further evaluation by D&C and LEEP excision of the cervix. Patient does understand the surgery and risks including risks of infection, bleeding. All the patient's questions are answered and a written consent is obtained. Operative Findings: This patient had no significant uterine curettings consistent with atrophy. Patient had ectocervical findings as to noted in the office. Description of Procedure: This patient is taken to the operating room where she is laid in the supine position. She subsequently undergoes general mask anesthesia without incident. With this done and adequate anesthesia, patient placed in dorsal lithotomy position. She has a vaginal perineal prep and drape. A laser speculum was placed into the vagina after the bladder is drained for 10 mL of urine. I first doing an endocervical curetting. I then gently dilate the cervix and sound the uterus to about 7 cm. Cervix is then dilated enough to allow a curette easily uterine cavity and a vigorous curettage of all 4 quadrants is done for scant tissue. With this done I then used a large LEEP loop and excise the ectocervix in multiple passes. Using the small LEEP loop I also excise portions of the endocervix. All these pieces were sent off to pathology. With this done cauterization is done of the ectocervical margins and endocervical bed. There is minimal bleeding. I then placed Monsel solution on the cervix for added hemostasis. This point the procedure is terminated. The speculum is removed. All counts are correct 3. Patient is awakened from anesthesia and taken to the recovery room in satisfactory condition. There are no complications. All counts are correct 3.
[2017-06-18] MEDS ORDERED: Acetaminophen-Codeine 300-30mg TAB PO ONE (08:55)
[2017-06-18 09:08] VITALS: BP 125/76; PULSE 72
== END 2017-06-18 09:33 | disposition home or self-care (01) ==
LOC: OR 06:36
PROVIDERS: ATTEND Obstetrics & Gynecology
DX: R87.613 High grade squamous intraepithelial lesion on cytologic smear of cervix (HGSIL) (principal); I10 Essential (primary) hypertension; E07.9 Disorder of thyroid, unspecified; F17.200 Nicotine dependence, unspecified, uncomplicated; C50.919 Malignant neoplasm of unspecified site of unspecified female breast; Z79.811 Long term (current) use of aromatase inhibitors; Z79.82 Long term (current) use of aspirin; Z79.899 Other long term (current) drug therapy; F39 Unspecified mood [affective] disorder; Z79.1 Long term (current) use of non-steroidal anti-inflammatories (NSAID); Z79.891 Long term (current) use of opiate analgesic
CPT/HCPCS: 57522; J2250; J1100; J2405; J2001; J1885; J2704

== ENCOUNTER → 2017-08-17 | Outpatient (CLI) | payer OTHER ==
[2017-08-17 08:24] LABS: Basophils % (A) 1 %; CH 33.6; Eosinophils # (A) 0.1 k/uL (0-0.7); Eosinophils % (A) 2 %; HCT 38.9 % (34.0-46.0); HDW 2.04; HGB 12.4 gm/dL (11.4-16.0); Luc # (Auto) 0.07; Luc % (Auto) 2; Lymphocytes # (A) 1.1 k/uL (1.0-4.8); Lymphocytes % (A) 26 %; MCH 32.6 pg (25.0-35.0); MCHC 31.8 g/dL (31.0-37.0); MCV 102.3 fL (80.0-100.0); Macrocytosis Slight; Mean Platelet Volume 7.3; Monocytes # (A) 0.4 k/uL (0-1.0); Monocytes % (A) 9 %; Neutrophils # (A) 2.7 k/uL (1.3-7.7); Neutrophils % (A) 61 %; RDW 13.3 % (11.5-15.5); WBC 4.4 k/uL (3.8-10.6); WBC (Perox) 4.67
[2017-08-17 09:02] LABS: Anion Gap 12 mmol/L; Blood Urea Nitrogen 13 mg/dL (7-17); Calcium 9.9 mg/dL (8.4-10.2); Carbon Dioxide 22 mmol/L (22-30); Chloride 100 mmol/L (98-107); Glucose 96 mg/dL (74-99); Non-African American GFR(MDRD) >60 (>60 ml/min/1.73 sqM); Potassium 3.4 mmol/L (3.5-5.1); Sodium 134 mmol/L (137-145)
== END | disposition home or self-care (01) ==
LOC: LABPAT 07:26
PROVIDERS: ATTEND Obstetrics & Gynecology
DX: Z01.810 Encounter for preprocedural cardiovascular examination (principal); Z01.812 Encounter for preprocedural laboratory examination
CPT/HCPCS: 80048; 85025

== ENCOUNTER → 2017-12-20 | Outpatient (CLI) | payer BC ==
--- NOTE | 2017-12-20 09:53 | MM ---
Reason for exam: additional evaluation requested from prior study. Last mammogram was performed 11 months ago. History: Patient is postmenopausal and has history of breast cancer at age 61. Malignant MG pre op loc each addl RT of the right breast, February 20, 2017. Malignant MG pre op needle loc RT of the right breast, February 20, 2017. Malignant US biopsy breast VAD RT of the right breast, January 24, 2017. Malignant US biopsy breast add'l VAD RT of the right breast, January 24, 2017. Malignant US biopsy breast add'l VAD RT of the right breast, January 24, 2017. MG Diagnostic Mammo LT w CAD CC, MLO, and ML view(s) were taken of the left breast. Prior study comparison: January 24, 2017, right breast MG diagnostic mammo RT wo CAD. January 16, 2017, right breast MG work up mamm w CAD RT. Finding: There is a 4 mm high density, lobulated mass located 5 cm from the nipple in the upper inner quadrant, middle position of the left breast. this disperses with compression and is not present on ML. Likely summation density. These results were verbally communicated with the patient and result sheet given to the patient on 12/20/17. ASSESSMENT: Probably benign, BI-RAD 3 RECOMMENDATION: Follow-up diagnostic mammogram of the left breast in 6 months.
== END | disposition home or self-care (01) ==
LOC: RADMAMWWP 08:09
PROVIDERS: ATTEND Family Medicine
DX: C50.212 Malignant neoplasm of upper-inner quadrant of left female breast (principal)
CPT/HCPCS: 77065

== ENCOUNTER → 2018-05-14 | Outpatient (CLI) | payer BC ==
--- NOTE | 2018-05-14 09:52 | XR ---
EXAMINATION TYPE: XR knee complete RT DATE OF EXAM: 05/14/2018 COMPARISON: NONE HISTORY: Palpable abnormality TECHNIQUE: Four views are submitted. FINDINGS: Joint spaces are preserved. Osseous structures are intact. No acute fracture seen. Soft tissue ful lness is seen posteriorly. IMPRESSION: 1. Soft tissue fullness is seen posteriorly. Recommend an MRI to assess for soft tissue abnormality.
== END | disposition home or self-care (01) ==
LOC: RADXRMAIN 09:30
PROVIDERS: ATTEND Physician Assistant
DX: M25.861 Other specified joint disorders, right knee (principal)

== ENCOUNTER → 2018-06-21 | Outpatient (CLI) | payer BC ==
--- NOTE | 2018-06-21 10:29 | MM ---
Reason for exam: follow-up at short interval from prior study. Last mammogram was performed 6 months ago. History: Patient is postmenopausal and has history of breast cancer at age 61. Malignant MG pre op loc each addl RT of the right breast, February 20, 2017. Malignant MG pre op needle loc RT of the right breast, February 20, 2017. Malignant US biopsy breast VAD RT of the right breast, January 24, 2017. Malignant US biopsy breast add'l VAD RT of the right breast, January 24, 2017. Malignant US biopsy breast add'l VAD RT of the right breast, January 24, 2017. Mastectomy of the right breast. Took hormonal contraceptives for 5 years. Physical Findings: Nurse did not find any significant physical abnormalities on exam. MG Diagnostic Mammo LT w0 CAD CC, MLO, and XCCL view(s) were taken of the left breast. Prior study comparison: December 20, 2017, left breast MG diagnostic mammo LT w CAD. January 24, 2017, right breast MG diagnostic mammo RT wo CAD. The breast tissue is heterogeneously dense. This may lower the sensitivity of mammography. No suspicious abnormality. These results were verbally communicated with the patient and result sheet given to the patient on 06/21/18. ASSESSMENT: Negative, BI-RAD 1 RECOMMENDATION: Follow-up diagnostic mammogram of the left breast in 1 year. KELI
== END | disposition home or self-care (01) ==
LOC: RADMAMWWP 08:42
PROVIDERS: ATTEND Internal Medicine Hematology & Oncology
DX: R92.8 Other abnormal and inconclusive findings on diagnostic imaging of breast (principal); Z85.3 Personal history of malignant neoplasm of breast
CPT/HCPCS: 77065

== ENCOUNTER 2018-09-06 08:51 | Observation (INO) | payer BC ==
[2018-09-06] MEDS ORDERED: NITROGLYCERIN OINT 1 INCH/GM PACKET TOPICAL STA (09:18)
[2018-09-06] MEDS ORDERED: ASPIRIN 81 MG PO STA (09:18)
--- NOTE | 2018-09-06 09:21 | ED ---
General Adult HPI - General Chief complaint: Chest Pain Stated complaint: chest tightness Time Seen by Provider: 09/06/18 09:00 Source: patient, RN notes reviewed Mode of arrival: wheelchair Limitations: no limitations - History of Present Illness Initial comments: This is a 63-year-old female presents emergency Department complaining of chest tightness since last evening. Patient states it comes and goes but when she is exerting herself it's worse and she is also much more short of breath when she exerts herself. Patient states she has high blood pressure and she has smoked for 40+ years and states she quit in January. Patient states she's never had this kind of chest tightness in the past. Patient denies any fever chills or cough. Patient states just sitting here she's not short of breath and has no chest tightness at this time. Patient states she were to get up and move around a little bit the tightness would come back immediately. Patient denies any abdominal pain. Patient denies any vomiting or diarrhea. Patient denies any calf pain or leg swelling. Patient denies any history of cardiac problems. - Related Data Home Medications Medication Instructions Recorded Confirmed Levothyroxine Sodium [Synthroid] 50 mcg PO DAILY 02/15/17 09/06/18 Calcium Carbonate/Vitamin D3 1 tab PO BID 06/11/17 09/06/18 [Calcium 600-Vit D3 800 Tab] Letrozole [Femara] 2.5 mg PO DAILY@1700 06/11/17 09/06/18 ALPRAZolam [Xanax] 0.25 mg PO BID PRN 08/17/17 09/06/18 Albuterol Inhaler [Ventolin Hfa 1 - 2 puff INHALATION RT-Q6H PRN 09/06/18 Inhaler] Alendronate Sodium [Fosamax] 70 mg PO TOLLIVER 09/06/18 09/06/18 Losartan/Hydrochlorothiazide 1 tab PO DAILY 09/06/18 09/06/18 [Losartan-Hctz 100-25 mg Tab] Sertraline [Zoloft] 100 mg PO DAILY 09/06/18 09/06/18 Allergies Allergy/AdvReac Type Severity Reaction Status Date / Time No Known Allergies Allergy Verified 09/06/18 09:37 Review of Systems ROS Statement: Those systems with pertinent positive or pertinent negative responses have been documented in the HPI. ROS Other: All systems not noted in ROS Statement are negative. Past Medical History Past Medical History: Cancer Additional Past Medical History / Comment(s): Breast cancer History of Any Multi-Drug Resistant Organisms: None Reported Past Surgical History: Hysterectomy Additional Past Surgical History / Comment(s): right masectomy, rt breast biopsy , rt breast lumpectomy. Biopsy of right arm yrs ago. Past Anesthesia/Blood Transfusion Reactions: No Reported Reaction Past Psychological History: Anxiety, Depression Smoking Status: Former smoker Past Alcohol Use History: None Reported Past Drug Use History: None Reported - Past Family History Mother Family Medical History: No Reported History General Exam - General Exam Comments Initial Comments: GENERAL: Patient is well-developed and well-nourished. Patient is nontoxic and well- hydrated and is in no acute distress. ENT: Neck is soft and supple. No significant lymphadenopathy is noted. Oropharynx is clear. Moist mucous membranes. Neck has full range of motion without eliciting any pain. EYES: The sclera were anicteric and conjunctiva were pink and moist. Extraocular movements were intact and pupils were equal round and reactive to light. Eyelids were unremarkable. PULMONARY: Unlabored respirations. Good breath sounds bilaterally. No audible rales rhonchi or wheezing was noted. CARDIOVASCULAR: There is a regular rate and rhythm without any murmurs gallops or rubs. ABDOMEN: Soft and nontender with normal bowel sounds. No palpable organomegaly was noted. There is no palpable pulsatile mass. SKIN: Skin is clear with no lesions or rashes and otherwise unremarkable. NEUROLOGIC: Patient is alert and oriented x3. Cranial nerves II through XII are grossly intact. Motor and sensory are also intact. Normal speech, volume and content. Symmetrical smile. MUSCULOSKELETAL: Normal extremities with adequate strength and full range of motion. No lower extremity swelling or edema. No calf tenderness. LYMPHATICS: No significant lymphadenopathy is noted PSYCHIATRIC: Normal psychiatric evaluation. Limitations: no limitations Course Vital Signs 09/06/18 09/06/18 09:12 10:34 Temperature 97.3 F L Pulse Rate 78 62 Respiratory 17 17 Rate Blood Pressure 139/78 136/74 O2 Sat by Pulse 99 98 Oximetry Medical Decision Making - Medical Decision Making EKG shows normal sinus rhythm at 73 bpm DC interval is 136 dresses 80 QT interval 398 QTC is 438. Patient's EKG shows no ST segment elevation or depression or T wave abnormalities are noted Chest x-ray shows no acute abnormality. - Lab Data Result diagrams: 09/06/18 09:09 09/06/18 09:09 Lab Results 09/06/18 09/06/18 09/06/18 Range/Units 09:09 09:09 09:09 WBC 6.1 (3.8-10.6) k/uL RBC 4.29 (3.80-5.40) m/uL Hgb 13.5 (11.4-16.0) gm/dL Hct 40.6 (34.0-46.0) % MCV 94.5 (80.0-100.0) fL MCH 31.4 (25.0-35.0) pg MCHC 33.2 (31.0-37.0) g/dL RDW 13.1 (11.5-15.5) % Plt Count 350 (150-450) k/uL Neutrophils % 63 % Lymphocytes % 22 % Monocytes % 10 % Eosinophils % 3 % Basophils % 1 % Neutrophils # 3.8 (1.3-7.7) k/uL Lymphocytes # 1.3 (1.0-4.8) k/uL Monocytes # 0.6 (0-1.0) k/uL Eosinophils # 0.2 (0-0.7) k/uL Basophils # 0.1 (0-0.2) k/uL PT (9.0-12.0) sec INR (<1.2) APTT (22.0-30.0) sec Sodium 135 L (137-145) mmol/L Potassium 3.6 (3.5-5.1) mmol/L Chloride 100 (98-107) mmol/L Carbon Dioxide 24 (22-30) mmol/L Anion Gap 11 mmol/L BUN 18 H (7-17) mg/dL Creatinine 0.86 (0.52-1.04) mg/dL Est GFR (CKD-EPI)AfAm 83 (>60 ml/min/1.73 sqM) Est GFR (CKD-EPI)NonAf 72 (>60 ml/min/1.73 sqM) Glucose 79 (74-99) mg/dL Calcium 10.8 H (8.4-10.2) mg/dL Magnesium 1.5 L (1.6-2.3) mg/dL Total Bilirubin 0.5 (0.2-1.3) mg/dL AST 23 (14-36) U/L ALT 24 (9-52) U/L Alkaline Phosphatase 78 (38-126) U/L Total Creatine Kinase 58 (30-135) U/L CK-MB (CK-2) 1.8 (0.0-2.4) ng/mL CK-MB (CK-2) Rel Index 3.1 Troponin I <0.012 (0.000-0.034) ng/mL Total Protein 7.5 (6.3-8.2) g/dL Albumin 4.4 (3.5-5.0) g/dL 09/06/18 Range/Units 09:09 WBC (3.8-10.6) k/uL RBC (3.80-5.40) m/uL Hgb (11.4-16.0) gm/dL Hct (34.0-46.0) % MCV (80.0-100.0) fL MCH (25.0-35.0) pg MCHC (31.0-37.0) g/dL RDW (11.5-15.5) % Plt Count (150-450) k/uL Neutrophils % % Lymphocytes % % Monocytes % % Eosinophils % % Basophils % % Neutrophils # (1.3-7.7) k/uL Lymphocytes # (1.0-4.8) k/uL Monocytes # (0-1.0) k/uL Eosinophils # (0-0.7) k/uL Basophils # (0-0.2) k/uL PT 9.6 (9.0-12.0) sec INR 1.0 (<1.2) APTT 22.5 (22.0-30.0) sec Sodium (137-145) mmol/L Potassium (3.5-5.1) mmol/L Chloride (98-107) mmol/L Carbon Dioxide (22-30) mmol/L Anion Gap mmol/L BUN (7-17) mg/dL Creatinine (0.52-1.04) mg/dL Est GFR (CKD-EPI)AfAm (>60 ml/min/1.73 sqM) Est GFR (CKD-EPI)NonAf (>60 ml/min/1.73 sqM) Glucose (74-99) mg/dL Calcium (8.4-10.2) mg/dL Magnesium (1.6-2.3) mg/dL Total Bilirubin (0.2-1.3) mg/dL AST (14-36) U/L ALT (9-52) U/L Alkaline Phosphatase (38-126) U/L Total Creatine Kinase (30-135) U/L CK-MB (CK-2) (0.0-2.4) ng/mL CK-MB (CK-2) Rel Index Troponin I (0.000-0.034) ng/mL Total Protein (6.3-8.2) g/dL Albumin (3.5-5.0) g/dL Critical Care Time Critical Care Time: Yes Total Critical Care Time: 35 Disposition Clinical Impression: Unstable angina pectoris Disposition: ADMITTED IP TO THIS HOSP Referrals: Isaias Hagen DO [Primary Care Provider] - 1-2 days Time of Disposition: 10:37
[2018-09-06 09:35] LABS: Basophils # (A) 0.1 k/uL (0-0.2); Basophils % (A) 1 %; Eosinophils # (A) 0.2 k/uL (0-0.7); Eosinophils % (A) 3 %; HCT 40.6 % (34.0-46.0); HGB 13.5 gm/dL (11.4-16.0); Lymphocytes # (A) 1.3 k/uL (1.0-4.8); Lymphocytes % (A) 22 %; MCH 31.4 pg (25.0-35.0); MCHC 33.2 g/dL (31.0-37.0); MCV 94.5 fL (80.0-100.0); Mean Platelet Volume 7.4; Monocytes # (A) 0.6 k/uL (0-1.0); Monocytes % (A) 10 %; Neutrophils # (A) 3.8 k/uL (1.3-7.7); Neutrophils % (A) 63 %; Platelet Count 350 k/uL (150-450); RBC 4.29 m/uL (3.80-5.40); RDW 13.1 % (11.5-15.5); WBC 6.1 k/uL (3.8-10.6)
[2018-09-06 09:44] LABS: Albumin 4.4 g/dL (3.5-5.0); Calcium 10.8 mg/dL (8.4-10.2); Magnesium 1.5 mg/dL (1.6-2.3); Potassium 3.6 mmol/L (3.5-5.1); Total Bilirubin 0.5 mg/dL (0.2-1.3); Total Protein 7.5 g/dL (6.3-8.2)
--- NOTE | 2018-09-06 09:49 | XR ---
EXAMINATION TYPE: XR chest 2V DATE OF EXAM: 09/06/2018 COMPARISON: 02/01/2017 TECHNIQUE: PA and lateral views submitted. HISTORY: Chest pain FINDINGS: The lungs are clear and there is no pneumothorax, pleural effusion, or focal pneumonia. Hyperinflat ion lungs. Hypertrophic and degenerative change of the spine. Atherosclerotic change aorta. IMPRESSION: 1. No acute process.
[2018-09-06 09:51] LABS: Partial Thromboplastin Time 22.5 sec (22.0-30.0); Prothrombin Time 9.6 sec (9.0-12.0)
[2018-09-06 09:57] LABS: Creatine Kinase 58 U/L (30-135)
[2018-09-06] MEDS ORDERED: MAGNESIUM SULFATE-D5W PMX 1 GM in DEXTROSE/WATER 1 100ML.BAG IVPB ONE (10:08)
[2018-09-06 10:09] LABS: Creatine Kinase MB 1.8 ng/mL (0.0-2.4); Troponin I <0.012 ng/mL (0.000-0.034)
[2018-09-06] MEDS ORDERED: HEPARIN SODIUM,PORCINE 5,000 UNIT/ML 1 ML VIAL IV ONE (10:36)
[2018-09-06] MEDS ORDERED: NITROGLYCERIN SL TABS 0.4 MG TAB SUBLINGUAL PRN (10:37)
[2018-09-06] MEDS ORDERED: HEPARIN SOD,PORK IN 0.45% NACL 25,000 UNIT in 0.45% NACL 1 500ML.BAG IV SCH (10:45)
[2018-09-06] MEDS: NITROGLYCERIN OINT 1 INCH/GM PACKET TOPICAL SCH ×2 (13:03→17:35)
[2018-09-06 16:47] LABS: Creatine Kinase 52 U/L (30-135)
[2018-09-06 16:59] LABS: Creatine Kinase MB 1.8 ng/mL (0.0-2.4); Troponin I <0.012 ng/mL (0.000-0.034)
[2018-09-06] MEDS: PANTOPRAZOLE 40 MG/10 ML VIAL IVP SCH (17:40)
--- NOTE | 2018-09-06 18:00 | P.HPIM ---
History of Present Illness Patient is a 63-year-old pleasant female came in with composite chest tightness lasting for 5 minutes mild in severity nonradiating started after eating initially started at a paced gastric burning followed by chest pressure denied and diaphoresis, did have some shortness of breath shortness of breath lightheadedness associated with that. It resolves spontaneously. Patient denied any fever chills denied any cough chest pain is nonpleuritic in nature quit smoking a few months ago and month of January never had any heart problems in the past. Review of Systems REVIEW OF SYSTEMS: CONSTITUTIONAL: No fever, no malaise, no fatigue. HEENT: No recent visual problems or hearing problems. Denied any sore throat. CARDIOVASCULAR: No orthopnea, PND, no palpitations, no syncope. PULMONARY: No shortness of breath, no cough, no hemoptysis. GASTROINTESTINAL: No diarrhea, no nausea, no vomiting, no abdominal pain. Normoactive bowel sounds. NEUROLOGICAL: No headaches, no weakness, no numbness. HEMATOLOGICAL: Denies any bleeding or petechiae. GENITOURINARY: Denies any burning micturition, frequency, or urgency. MUSCULOSKELETAL/RHEUMATOLOGICAL: Denies any joint pain, swelling, or any muscle pain. ENDOCRINE: Denies any polyuria or polydipsia. The rest of the 14-point review of systems is negative. Past Medical History Past Medical History: Cancer, Hypertension, Thyroid Disorder Additional Past Medical History / Comment(s): R breast cancer with mastectomy and takes hormone chemo pill, hypothyroid. History of Any Multi-Drug Resistant Organisms: None Reported Past Surgical History: Breast Surgery, Hysterectomy, Tonsillectomy Additional Past Surgical History / Comment(s): R breast biopsy, R breast lumpectomy, R masectomy, R arm muscle biopsy yrs ago, D&C, LEEP, total hysterectomy. Past Anesthesia/Blood Transfusion Reactions: Postoperative Nausea & Vomiting ( PONV) Additional Past Anesthesia/Blood Transfusion Reaction / Comment(s): Severe PONV. Smoking Status: Former smoker - Past Family History Mother Family Medical History: No Reported History Additional Family Medical History / Comment(s): Mother from heart problems at the age of 77yrs. Father Family Medical History: COPD Additional Family Medical History / Comment(s): Father at the age of 86yrs. Medications and Allergies Home Medications Medication Instructions Recorded Confirmed Type Levothyroxine Sodium [Synthroid] 50 mcg PO DAILY 02/15/17 09/06/18 History Calcium Carbonate/Vitamin D3 1 tab PO BID 06/11/17 09/06/18 History [Calcium 600-Vit D3 800 Tab] Letrozole [Femara] 2.5 mg PO DAILY@1700 06/11/17 09/06/18 History ALPRAZolam [Xanax] 0.25 mg PO BID PRN 08/17/17 09/06/18 History Albuterol Inhaler [Ventolin Hfa 1 - 2 puff INHALATION RT-Q6H PRN 09/06/18 History Inhaler] Alendronate Sodium [Fosamax] 70 mg PO TOLLIVER 09/06/18 09/06/18 History Losartan/Hydrochlorothiazide 1 tab PO DAILY 09/06/18 09/06/18 History [Losartan-Hctz 100-25 mg Tab] Sertraline [Zoloft] 100 mg PO DAILY 09/06/18 09/06/18 History Allergies Allergy/AdvReac Type Severity Reaction Status Date / Time No Known Allergies Allergy Verified 09/06/18 09:37 Physical Exam Vitals: Vital Signs Temp Pulse Resp BP Pulse Ox 09/06/18 14:02 70 18 124/69 100 09/06/18 11:34 74 18 124/68 97 09/06/18 10:34 62 17 136/74 98 09/06/18 09:12 97.3 F L 78 17 139/78 99 Intake and Output 09/06/18 09/06/18 09/06/18 06:59 14:59 22:59 Intake Total 240 Balance 240 Intake: Oral 240 Other: # Voids 1 Weight 58.967 kg 60.1 kg PHYSICAL EXAMINATION: GENERAL: The patient is alert and oriented x3, not in any acute distress. Well developed, well nourished. HEENT: Pupils are round and equally reacting to light. EOMI. No scleral icterus. No conjunctival pallor. Normocephalic, atraumatic. No pharyngeal erythema. No thyromegaly. CARDIOVASCULAR: S1 and S2 present. No murmurs, rubs, or gallops. PULMONARY: Chest is clear to auscultation, no wheezing or crackles. ABDOMEN: Soft, nontender, nondistended, normoactive bowel sounds. No palpable organomegaly. MUSCULOSKELETAL: No joint swelling or deformity. EXTREMITIES: No cyanosis, clubbing, or pedal edema. NEUROLOGICAL: Gross neurological examination did not reveal any focal deficits. SKIN: No rashes. Results CBC & Chem 7: 09/06/18 09:09 09/06/18 09:09 Labs: Abnormal Lab Results - Last 24 Hours (Table) 09/06/18 Range/Units 09:09 Sodium 135 L (137-145) mmol/L BUN 18 H (7-17) mg/dL Calcium 10.8 H (8.4-10.2) mg/dL Magnesium 1.5 L (1.6-2.3) mg/dL Thrombosis Risk Factor Assmnt - Choose All That Apply Any of the Below Risk Factors Present?: Yes Other Risk Factors: Yes Each Risk Factor Represents 2 Points: Age 61-74 years, Malignancy Other congenital or acquired thrombophilia - If yes, enter type in comment: No Thrombosis Risk Factor Assessment Total Risk Factor Score: 4 Thrombosis Risk Factor Assessment Level: Moderate Risk Assessment and Plan Plan: -Chest pain: Patient is admitted to rule out acute coronary syndromes, unstable angina. Patient will be evaluated by cardiology will obtain 2 sets of troponins and EKG. Patient appears to have peptic ulcer disease or gastritis patient will be started on Protonix. -Hypertension -Hypothyroidism -History of breast cancer with the lumpectomy in the past -Nicotine abuse recently quit -Depression For above-mentioned chronic medical problems patient will be resumed on appropriate home medications.
[2018-09-06] MEDS ORDERED: MAGNESIUM SULFATE-D5W PMX 1 GM in DEXTROSE/WATER 1 100ML.BAG IVPB SCH (20:00)
[2018-09-06] MEDS ORDERED: ALBUTEROL NEBULIZED 2.5 MG/3 ML INHALATION PRN ×2 (20:26→20:31)
[2018-09-06] MEDS ORDERED: ALPRAZolam 0.25 MG TAB PO PRN (20:26)
[2018-09-06] MEDS ORDERED: LETROZOLE 2.5 MG TAB PO SCH (21:00)
[2018-09-06 21:28] LABS: Creatine Kinase 57 U/L (30-135)
[2018-09-06] MEDS: LOSARTAN 50 MG TAB PO SCH (21:32)
[2018-09-06] MEDS: CALCIUM CARB-VIT D 500MG-200UN 1 EACH TAB PO SCH (21:33)
[2018-09-06] MEDS: SERTRALINE 100 MG TAB PO SCH (21:33)
[2018-09-06 21:40] LABS: Creatine Kinase MB 1.7 ng/mL (0.0-2.4); Troponin I <0.012 ng/mL (0.000-0.034)
[2018-09-07] MEDS: NITROGLYCERIN OINT 1 INCH/GM PACKET TOPICAL SCH ×3 (00:17→11:22)
[2018-09-07] MEDS: LEVOTHYROXINE 50 MCG TAB PO SCH ×2 (05:03→08:58)
--- NOTE | 2018-09-07 07:57 | P.CRDCN ---
History of Present Illness Consult date: 09/07/18 Chief complaint: chest pain History of present illness: This is a pleasant 63-year-old female patient with a past medical history significant for hypertension presented to the hospital complaining of chest discomfort. She was in her usual state of health until yesterday morning. She woke up from sleep complaining of discomfort, in the epigastric area, as a tightness, no radiation to the arm or neck or shoulders,his symptoms of nausea, sweating, shortness of breath, dizziness or lightheaded this, or syncope. The patient has been pain free since she was admitted to the hospital. She does have hypertension. She quit the smoking few months ago. No significant family history of CAD. The EKG showed sinus rhythm without any ischemic changes. The chest x-ray did not show any acute abnormalities. The cardiac enzymes were checked and came in to be unremarkable as well. I discussed with the patient the results of her workup including EKG as well as cardiac enzymes and the need for stress test. I did mention to her that on the weekend we don't to stress test. For that reason I am going to discharge the patient home after I get up and around and make sure she is asymptomatic with getting up and around and then I'll follow-up with her in the office as an outpatient. Past Medical History Past Medical History: Cancer, Hypertension, Thyroid Disorder Additional Past Medical History / Comment(s): R breast cancer with mastectomy and takes hormone chemo pill, hypothyroid. History of Any Multi-Drug Resistant Organisms: None Reported Past Surgical History: Breast Surgery, Hysterectomy, Tonsillectomy Additional Past Surgical History / Comment(s): R breast biopsy, R breast lumpectomy, R masectomy, R arm muscle biopsy yrs ago, D&C, LEEP, total hysterectomy. Past Anesthesia/Blood Transfusion Reactions: Postoperative Nausea & Vomiting ( PONV) Additional Past Anesthesia/Blood Transfusion Reaction / Comment(s): Severe PONV. Smoking Status: Former smoker - Past Family History Mother Family Medical History: No Reported History Additional Family Medical History / Comment(s): Mother from heart problems at the age of 77yrs. Father Family Medical History: COPD Additional Family Medical History / Comment(s): Father at the age of 86yrs. Medications and Allergies Home Medications Medication Instructions Recorded Confirmed Type Levothyroxine Sodium [Synthroid] 50 mcg PO DAILY 02/15/17 09/06/18 History Calcium Carbonate/Vitamin D3 1 tab PO BID 06/11/17 09/06/18 History [Calcium 600-Vit D3 800 Tab] Letrozole [Femara] 2.5 mg PO DAILY@1700 06/11/17 09/06/18 History ALPRAZolam [Xanax] 0.25 mg PO BID PRN 08/17/17 09/06/18 History Albuterol Inhaler [Ventolin Hfa 1 - 2 puff INHALATION RT-Q6H PRN 09/06/18 History Inhaler] Alendronate Sodium [Fosamax] 70 mg PO TOLLIVER 09/06/18 09/06/18 History Losartan/Hydrochlorothiazide 1 tab PO DAILY 09/06/18 09/06/18 History [Losartan-Hctz 100-25 mg Tab] Sertraline [Zoloft] 100 mg PO DAILY 09/06/18 09/06/18 History Allergies Allergy/AdvReac Type Severity Reaction Status Date / Time No Known Allergies Allergy Verified 09/06/18 09:37 Physical Exam Vitals: Vital Signs Temp Pulse Pulse Resp BP BP Pulse Ox 09/07/18 03:41 18 09/07/18 03:00 98.1 F 78 18 121/81 95 09/07/18 00:00 18 09/06/18 23:00 98.3 F 84 18 138/75 95 09/06/18 19:58 18 09/06/18 19:05 98.4 F 87 18 129/76 95 09/06/18 14:02 70 18 124/69 100 09/06/18 11:34 74 18 124/68 97 09/06/18 10:34 62 17 136/74 98 09/06/18 09:12 97.3 F L 78 17 139/78 99 Intake and Output 09/06/18 09/07/18 09/07/18 22:59 06:59 14:59 Intake Total 356.03 110.657 Balance 356.03 110.657 Intake: Intake, IV Titration 116.03 110.657 Amount Heparin Sod,Pork in 0.45% 116.03 110.657 NaCl 25,000 unit In 0.45 % NaCl 1 500ml.bag @ 12 UNITS/KG/HR 14.15 mls/hr IV .Q24H JAYDEN Rx#: [id number] Oral 240 Other: # Voids 1 2 Weight 60.1 kg - Constitutional General appearance: no acute distress - Respiratory Respiratory: bilateral: CTA - Cardiovascular Rhythm: regular Heart sounds: normal: S1, S2 Results 09/06/18 09:09 09/06/18 09:09 Cardiac Enzymes 09/06/18 09/06/18 09/06/18 Range/Units 09:09 09:09 15:53 AST 23 (14-36) U/L CK-MB (CK-2) 1.8 1.8 (0.0-2.4) ng/mL Troponin I <0.012 <0.012 (0.000-0.034) ng/mL 09/06/18 Range/Units 21:03 AST (14-36) U/L CK-MB (CK-2) 1.7 (0.0-2.4) ng/mL Troponin I <0.012 (0.000-0.034) ng/mL Coagulation 09/06/18 09/06/18 09/07/18 Range/Units 09:09 17:30 00:45 PT 9.6 (9.0-12.0) sec APTT 22.5 37.4 H 40.5 H (22.0-30.0) sec CBC 09/06/18 Range/Units 09:09 WBC 6.1 (3.8-10.6) k/uL RBC 4.29 (3.80-5.40) m/uL Hgb 13.5 (11.4-16.0) gm/dL Hct 40.6 (34.0-46.0) % Plt Count 350 (150-450) k/uL Comprehensive Metabolic Panel 09/06/18 Range/Units 09:09 Sodium 135 L (137-145) mmol/L Potassium 3.6 (3.5-5.1) mmol/L Chloride 100 (98-107) mmol/L Carbon Dioxide 24 (22-30) mmol/L BUN 18 H (7-17) mg/dL Creatinine 0.86 (0.52-1.04) mg/dL Glucose 79 (74-99) mg/dL Calcium 10.8 H (8.4-10.2) mg/dL AST 23 (14-36) U/L ALT 24 (9-52) U/L Alkaline Phosphatase 78 (38-126) U/L Total Protein 7.5 (6.3-8.2) g/dL Albumin 4.4 (3.5-5.0) g/dL Current Medications Generic Name Dose Route Start Last Admin Trade Name Freq PRN Reason Stop Dose Admin Albuterol Sulfate 2.5 mg 09/06/18 20:31 Ventolin Nebulized INHALATION RT-Q6H PRN Shortness Of Breath Alprazolam 0.25 mg 09/06/18 20:26 Xanax PO BID PRN Anxiety Aspirin 325 mg 09/07/18 09:00 Aspirin PO DAILY JAYDEN Calcium Carbonate 1 each 09/06/18 21:00 09/06/18 21:33 Oscal 500+D PO 1 each BID JAYDEN Administration Heparin Sodium/Sodium Chloride 500 mls @ 14.15 mls/hr 09/06/18 10:45 01:42 25,000 unit/ Sodium Chloride IV 17.12 units/kg/hr .Q24H JAYDEN 20.2 mls/hr Titration Protocol 12 UNITS/KG/HR Letrozole 2.5 mg 09/06/18 21:00 09/06/18 21:33 Femara PO 2.5 mg DAILY@1700 JAYDEN Administration Levothyroxine Sodium 50 mcg 09/07/18 06:30 09/07/18 05:03 Synthroid PO Not Given 0630 JAYDEN Losartan Potassium 100 mg 09/06/18 20:30 09/06/18 21:32 Cozaar PO 100 mg DAILY JAYDEN Administration Nitroglycerin 1 inch 09/06/18 12:00 09/07/18 05:02 Nitro-Bid Oint TOPICAL Not Given Q6HR JAYDEN Nitroglycerin 0.4 mg 09/06/18 10:37 Nitrostat SUBLINGUAL Q5M PRN Chest Pain Pantoprazole Sodium 40 mg 09/06/18 17:15 09/06/18 17:40 Protonix IVP 40 mg DAILY JAYDEN Administration Sertraline HCl 100 mg 09/06/18 20:30 09/06/18 21:33 Zoloft PO 100 mg DAILY JAYDEN Administration Intake and Output 09/06/18 09/07/18 09/07/18 22:59 06:59 14:59 Intake Total 356.03 110.657 Balance 356.03 110.657 Intake: Intake, IV Titration 116.03 110.657 Amount Heparin Sod,Pork in 0.45% 116.03 110.657 NaCl 25,000 unit In 0.45 % NaCl 1 500ml.bag @ 12 UNITS/KG/HR 14.15 mls/hr IV .Q24H JAYDEN Rx#: [id number] Oral 240 Other: # Voids 1 2 Weight 60.1 kg 09/06/18 09:09 09/06/18 09:09 Assessment and Plan Assessment: Assessment #1 when episode of atypical chest discomfort #2 hypertension Plan #1 the patient was ruled out for acute coronary event #2 she continues to be asymptomatic during her stay #3 from the cardiac standpoint she can be discharged home. Thank you for allowing us participate in her care.
[2018-09-07 08:10] VITALS: RESP 16
[2018-09-07] MEDS: CALCIUM CARB-VIT D 500MG-200UN 1 EACH TAB PO SCH (08:58)
[2018-09-07] MEDS: LOSARTAN 50 MG TAB PO SCH (08:59)
[2018-09-07] MEDS: SERTRALINE 100 MG TAB PO SCH (08:59)
[2018-09-07] MEDS: PANTOPRAZOLE 40 MG/10 ML VIAL IVP SCH (09:00)
[2018-09-07] MEDS ORDERED: ASPIRIN 325 MG TAB PO SCH (09:00)
[2018-09-07 09:02] LABS: Magnesium 1.8 mg/dL (1.6-2.3)
[2018-09-07 12:02] VITALS: BP 126/74; PULSE 70; TEMP 98.2
--- NOTE | 2018-09-07 16:49 | P.DS ---
Providers Date of admission: 09/06/18 10:38 Attending physician: Carina Britton Consults: 09/06/18 10:37 Consult Physician Urgent Consulting Provider: [facility] Consult Reason/Comments: Unstable angina Do you want consulting provider notified?: Yes Primary care physician: Isaias Hagen [facility] Course: Patient was admitted with chest pain and chest tightness which is believed secondary to gastritis or gastroesophageal reflux disease patient was evaluated cardiology rule out acute coronary syndromes patient will follow with cardiology as an outpatient. PHYSICAL EXAMINATION: GENERAL: The patient is alert and oriented x3, not in any acute distress. Well developed, well nourished. HEENT: Pupils are round and equally reacting to light. EOMI. No scleral icterus. No conjunctival pallor. Normocephalic, atraumatic. No pharyngeal erythema. No thyromegaly. CARDIOVASCULAR: S1 and S2 present. No murmurs, rubs, or gallops. PULMONARY: Chest is clear to auscultation, no wheezing or crackles. ABDOMEN: Soft, nontender, nondistended, normoactive bowel sounds. No palpable organomegaly. MUSCULOSKELETAL: No joint swelling or deformity. EXTREMITIES: No cyanosis, clubbing, or pedal edema. NEUROLOGICAL: Gross neurological examination did not reveal any focal deficits. SKIN: No rashes. At rest of the chronic medical problems hospitalization course please refer to my HPI from yesterday Plan - Discharge Summary Discharge Rx Participant: No New Discharge Prescriptions: New Omeprazole [PriLOSEC] 40 mg PO AC-BRKFST #14 capsule. No Action Levothyroxine Sodium [Synthroid] 50 mcg PO DAILY Letrozole [Femara] 2.5 mg PO DAILY@1700 Calcium Carbonate/Vitamin D3 [Calcium 600-Vit D3 800 Tab] 1 tab PO BID ALPRAZolam [Xanax] 0.25 mg PO BID PRN PRN Reason: Anxiety Albuterol Inhaler [Ventolin Hfa Inhaler] 1 - 2 puff INHALATION RT-Q6H PRN PRN Reason: Shortness Of Breath Alendronate Sodium [Fosamax] 70 mg PO TOLLIVER Losartan/Hydrochlorothiazide [Losartan-Hctz 100-25 mg Tab] 1 tab PO DAILY Sertraline [Zoloft] 100 mg PO DAILY Discharge Medication List Levothyroxine Sodium [Synthroid] 50 mcg PO DAILY 02/15/17 [History] Calcium Carbonate/Vitamin D3 [Calcium 600-Vit D3 800 Tab] 1 tab PO BID 06/11/17 [History] Letrozole [Femara] 2.5 mg PO DAILY@1700 06/11/17 [History] ALPRAZolam [Xanax] 0.25 mg PO BID PRN 08/17/17 [History] Albuterol Inhaler [Ventolin Hfa Inhaler] 1 - 2 puff INHALATION RT-Q6H PRN [History] Alendronate Sodium [Fosamax] 70 mg PO TOLLIVER 09/06/18 [History] Losartan/Hydrochlorothiazide [Losartan-Hctz 100-25 mg Tab] 1 tab PO DAILY [History] Sertraline [Zoloft] 100 mg PO DAILY 09/06/18 [History] Omeprazole [PriLOSEC] 40 mg PO TARIQ-BRKFST #14 capsule. 09/07/18 [Rx] Follow up Appointment(s)/Referral(s): Antoni Carlin MD [STAFF PHYSICIAN] - 09/17/18 10:30 am () Isaias Hagen DO [Primary Care Provider] - 3 Days Discharge Disposition: HOME SELF-CARE
== END 2018-09-07 13:27 | disposition home or self-care (01) ==
LOC: EC 08:51 → 3OBS 10:38
PROVIDERS: ADMIT Hospitalist; ATTEND Hospitalist
DX: R07.89 Other chest pain (principal); R06.02 Shortness of breath; R42 Dizziness and giddiness; I10 Essential (primary) hypertension; F32.9 Major depressive disorder, single episode, unspecified; F41.9 Anxiety disorder, unspecified; K21.9 Gastro-esophageal reflux disease without esophagitis; K29.70 Gastritis, unspecified, without bleeding; E03.9 Hypothyroidism, unspecified; Z87.891 Personal history of nicotine dependence; Z85.3 Personal history of malignant neoplasm of breast; Z79.890 Hormone replacement therapy; Z79.899 Other long term (current) drug therapy; Z79.811 Long term (current) use of aromatase inhibitors; Z79.83 Long term (current) use of bisphosphonates; Z82.49 Family history of ischemic heart disease and other diseases of the circulatory system; Z82.5 Family history of asthma and other chronic lower respiratory diseases
CPT/HCPCS: 99291 ×2; 96376 ×3; 96367 ×2; 96365 ×2; 96366 ×6; 96375; 36415; 93005; 80061; 80053; 82550; 82553; 83735 ×2; 84484; 85025; 85610; 85730 ×2; 71046; G0378 ×2; J1644 ×2; J3475; C9113 ×2

== ENCOUNTER → 2019-06-23 | Outpatient (CLI) | payer BC ==
--- NOTE | 2019-06-23 16:06 | BD ---
EXAMINATION TYPE: Axial Bone Density DATE OF EXAM: 06/23/2019 COMPARISON: 10/31/2017 CLINICAL HISTORY: Osteopenia Height: 62.5 IN Weight: 131 LBS RISK FACTORS HISTORY OF: Active: YES Postmenopausal woman: AGE 49 TOTAL HYST Lost more than 2 inches in height since high school: YES 11/27" MEDICATIONS: Thyroid Medications: YES Which medication: Levothyroxine How Lon YEARS Osteoporosis Medications: YES Which medication: ALENDRONATE How Lon YEARS Additional Medications: CALCIUM, VIT D, LEVOTHYROXINE, LETROZOLE,LOSARTAN, ALENDRONATE, ZOLOFT, MAGNE SIUM, FLAXSEED EXAM MEASUREMENTS: Bone mineral densitometry was performed using the Cardiac Insight System. Bone mineral density as measured about the Lumbar spine is: ----- L1-L4(G/cm2): 0.985 T Score Values are as follows: ----- L2: -1.1 ----- L3: -1.7 ----- L4: -1.9 ----- L1-L4: -1.6 Bone mineral density has: Increased 8.3% since study of: 10/31/2017 Bone mineral density about the R hip (g/cm2): 0.735 Bone mineral density about the L hip (g/cm2): 0.731 T Score values are as follows: -----R Neck: -2.2 -----L Neck: -2.2 -----R Total: -2.0 -----L Total: -2.0 Bone mineral density has: Increased 3.3% since study of: 10/31/2017 IMPRESSION: Osteopenia (T Score between -2.5 and -1). There is slightly increased risk of fracture and the patient may be considered for treatment. Re-Screen 2-5 years. NOTE: T-SCORE=SD OF THE YOUNG ADULT MEAN.
--- NOTE | 2019-06-24 10:57 | MM ---
Reason for exam: history of breast cancer, mastectomy. Last mammogram was performed 1 year ago. History: Patient is postmenopausal and has history of breast cancer at age 61. Malignant MG pre op loc each addl RT of the right breast, February 20, 2017. Malignant MG pre op needle loc RT of the right breast, February 20, 2017. Malignant US biopsy breast VAD RT of the right breast, January 24, 2017. Malignant US biopsy breast add'l VAD RT of the right breast, January 24, 2017. Malignant US biopsy breast add'l VAD RT of the right breast, January 24, 2017. Mastectomy of the right breast. Took hormonal contraceptives for 5 years. Physical Findings: Nurse did not find any significant physical abnormalities on exam. MG 3D Diag Mammo W/Cad LT CC and MLO view(s) were taken of the left breast. Prior study comparison: June 21, 2018, left breast MG diagnostic mammo LT wo CAD. December 20, 2017, left breast MG diagnostic mammo LT w CAD. There are scattered fibroglandular densities. No significant new finding when compared with prior studies. ASSESSMENT: Benign, BI-RAD 2 RECOMMENDATION: Routine screening mammogram of the left breast in 1 year.
== END | disposition home or self-care (01) ==
LOC: RADMAMWWP 14:02
PROVIDERS: ATTEND Internal Medicine Hematology & Oncology
DX: Z08 Encounter for follow-up examination after completed treatment for malignant neoplasm (principal); M85.851 Other specified disorders of bone density and structure, right thigh; M85.852 Other specified disorders of bone density and structure, left thigh; M85.88 Other specified disorders of bone density and structure, other site; Z85.3 Personal history of malignant neoplasm of breast; Z79.890 Hormone replacement therapy
CPT/HCPCS: 77061; 77065; 77080

== ENCOUNTER → 2020-03-26 | Outpatient (CLI) | payer MEDICARE, BC ==
--- NOTE | 2020-03-26 12:46 | XR ---
EXAMINATION TYPE: XR foot complete LT DATE OF EXAM: 03/26/2020 CLINICAL HISTORY: Dorsal left foot pain and swelling with no known trauma. TECHNIQUE: Frontal, lateral, and oblique images of the left foot are obtained. COMPARISON: None FINDINGS: There is no acute fracture/dislocation evident in the left foot. The joint spaces in the left foot appear within normal limits. Dorsal soft tissue swelling is seen of the midfoot. Small plan membership secretary spur is seen. Minimal arthropathy of the dorsal hindfoot and midfoot demonstrated as bony pr oliferation. IMPRESSION: There is no acute fracture or dislocation in the left foot. Mild dorsal soft tissue swel ling and arthropathy of the left foot. Small plantar heel spur.
== END | disposition home or self-care (01) ==
LOC: RADXRMAIN 12:23
PROVIDERS: ATTEND Family Medicine
DX: M79.89 Other specified soft tissue disorders (principal); M77.32 Calcaneal spur, left foot; M12.872 Other specific arthropathies, not elsewhere classified, left ankle and foot

== ENCOUNTER → 2020-06-24 | Outpatient (CLI) | payer MEDICARE, BC ==
--- NOTE | 2020-06-25 09:55 | MM ---
Reason for exam: additional evaluation requested from prior study. Last mammogram was performed 1 year ago. History: Patient is postmenopausal and has history of breast cancer at age 61. Malignant MG pre op loc each addl RT of the right breast, February 20, 2017. Malignant MG pre op needle loc RT of the right breast, February 20, 2017. Malignant US biopsy breast VAD RT of the right breast, January 24, 2017. Malignant US biopsy breast add'l VAD RT of the right breast, January 24, 2017. Malignant US biopsy breast add'l VAD RT of the right breast, January 24, 2017. Mastectomy of the right breast, 2017. Took hormonal contraceptives for 5 years. Taking other hormone for 3 years beginning at age 61. Physical Findings: Nurse Summary: 1cm nodule in the left breast at 1 o'clock (nurse TM). MG 3D Diag Mammo W/Cad LT CC and MLO view(s) were taken of the left breast. Prior study comparison: June 23, 2019, left breast MG 3d diag mammo w/cad LT. June 21, 2018, left breast MG diagnostic mammo LT wo CAD. There are scattered fibroglandular densities. No significant new findings when compared with previous films. These results were verbally communicated with the patient and result sheet given to the patient on 06/24/20. ASSESSMENT: Benign, BI-RAD 2 RECOMMENDATION: Follow-up diagnostic mammogram of the left breast in 1 year.
== END | disposition home or self-care (01) ==
LOC: RADMAMWWP 12:42
PROVIDERS: ATTEND Internal Medicine Hematology & Oncology
DX: Z08 Encounter for follow-up examination after completed treatment for malignant neoplasm (principal); Z85.3 Personal history of malignant neoplasm of breast; Z90.11 Acquired absence of right breast and nipple
CPT/HCPCS: 77065; G0279; 77061

== ENCOUNTER 2021-02-08 07:33 | Emergency (ER) | payer MEDICARE, BC ==
[2021-02-08] MEDS ORDERED: hydrALAZINE HCL 20 MG/ML 1 ML VIAL IVP STA ×2 (08:06→10:03)
[2021-02-08] MEDS ORDERED: SODIUM CHLORIDE 0.9% 1,000 ML IV STA (08:06)
[2021-02-08] MEDS ORDERED: cloNIDine HCL 0.1 MG TAB PO STA ×3 (08:08→09:35)
--- NOTE | 2021-02-08 08:11 | ED ---
General Adult HPI - General Chief complaint: Recheck/Abnormal Lab/Rx Stated complaint: High BP Time Seen by Provider: 02/08/21 07:48 Source: patient, RN notes reviewed Mode of arrival: ambulatory Limitations: no limitations - History of Present Illness Initial comments: Patient is a pleasant 65-year-old female presenting to the emergency department with concerns regarding high blood pressure. Symptoms have been occurring for around a month. Patient did lose her dog around a month ago however does not feel stress any longer because of this. Patient states her blood pressure was running 170 systolic. Over the past week to 2 systolic blood pressure has been running over 200. Patient was added on clonidine and then had that dose increased up to 0.3 twice a day. Patient was also started on carvidolol 6.25 in that dose was doubled then triple. Yesterday both of these medications were stopped and patient was started on diltiazem. Patient has not taken any medication yet this morning. Patient states she does not feel 100% normal however and has no specific complaints other than her blood pressure. - Related Data Home Medications Medication Instructions Recorded Confirmed Letrozole [Femara] 2.5 mg PO DAILY 06/11/17 02/08/21 ALPRAZolam [Xanax] 0.25 mg PO BID PRN 08/17/17 02/08/21 Alendronate Sodium [Fosamax] 70 mg PO TOLLIVER 09/06/18 02/08/21 Sertraline [Zoloft] 150 mg PO DAILY 09/06/18 02/08/21 Albuterol Sulfate [Proair Hfa] 1 - 2 puff INHALATION RT-Q6H PRN 02/08/21 02/08/21 Atorvastatin [Lipitor] 10 mg PO DAILY 02/08/21 02/08/21 Calcium Carbonate [Calcium] 600 mg PO BID 02/08/21 02/08/21 Diltiazem HCl [Diltiazem HCl 24Hr 120 mg PO HS 02/08/21 02/08/21 ER] Latanoprost/Pf [Latanoprost 0.005% 1 drop BOTH EYES HS 02/08/21 02/08/21 Eye Drop] Levothyroxine Sodium [Synthroid] 75 mcg PO DAILY 02/08/21 02/08/21 Losartan Potassium [Cozaar] 100 mg PO DAILY 02/08/21 02/08/21 Previous Rx's Medication Instructions Recorded Omeprazole [PriLOSEC] 40 mg PO AC-BRKFST #14 capsule. 09/07/18 Allergies Allergy/AdvReac Type Severity Reaction Status Date / Time No Known Allergies Allergy Verified 02/08/21 09:06 Review of Systems ROS Statement: Those systems with pertinent positive or pertinent negative responses have been documented in the HPI. ROS Other: All systems not noted in ROS Statement are negative. Constitutional: Denies: fever Eyes: Denies: eye pain ENT: Denies: ear pain Respiratory: Denies: cough Cardiovascular: Denies: chest pain Endocrine: Denies: fatigue Gastrointestinal: Denies: abdominal pain Genitourinary: Denies: dysuria Musculoskeletal: Denies: back pain Skin: Denies: rash Neurological: Denies: weakness Past Medical History Past Medical History: Cancer, Hypertension, Thyroid Disorder Additional Past Medical History / Comment(s): R breast cancer with mastectomy and takes hormone chemo pill, hypothyroid. History of Any Multi-Drug Resistant Organisms: None Reported Past Surgical History: Breast Surgery, Hysterectomy, Tonsillectomy Additional Past Surgical History / Comment(s): R breast biopsy, R breast lumpectomy, R masectomy, R arm muscle biopsy yrs ago, D&C, LEEP, total hysterectomy. Past Anesthesia/Blood Transfusion Reactions: Postoperative Nausea & Vomiting (PONV) Additional Past Anesthesia/Blood Transfusion Reaction / Comment(s): Severe PONV. Past Psychological History: Anxiety, Depression Smoking Status: Never smoker Past Alcohol Use History: None Reported Past Drug Use History: None Reported - Past Family History Mother Family Medical History: No Reported History Additional Family Medical History / Comment(s): Mother from heart problems at the age of 77yrs. Father Family Medical History: COPD Additional Family Medical History / Comment(s): Father at the age of 86yrs. General Exam Limitations: no limitations General appearance: alert, in no apparent distress Head exam: Present: atraumatic, normocephalic Eye exam: Present: normal appearance, PERRL Neck exam: Present: normal inspection Respiratory exam: Present: normal lung sounds bilaterally Cardiovascular Exam: Present: regular rate, normal rhythm GI/Abdominal exam: Present: soft. Absent: distended, tenderness, pulsatile mass Extremities exam: Present: normal inspection. Absent: pedal edema, calf tenderness Neurological exam: Present: alert Psychiatric exam: Present: normal affect, normal mood Skin exam: Present: normal color Course Vital Signs 02/08/21 02/08/21 02/08/21 07:38 08:58 09:29 Temperature 98.3 F Pulse Rate 86 92 86 Respiratory 18 20 20 Rate Blood Pressure 203/124 201/114 198/106 O2 Sat by Pulse 96 97 96 Oximetry 02/08/21 02/08/21 02/08/21 10:00 10:36 11:50 Temperature 97.5 F L Pulse Rate 85 98 85 Respiratory 20 16 18 Rate Blood Pressure 206/108 160/86 105/72 O2 Sat by Pulse 99 95 96 Oximetry EKG Findings - EKG Comments: EKG Findings:: Normal sinus rhythm at 80. UT 148. QRS 86. QT 374. QTC 431. Normal axis. Normal QRS. No acute ST change. Medical Decision Making - Medical Decision Making Patient reevaluated and resting complain bed. Patient has to except for blood pressures at this time. Patient and family updated on results and need for follow-up as well as plan. Patient states she does have an appointment with her primary care physician tomorrow. - Lab Data Result diagrams: 02/08/21 08:12 02/08/21 08:12 Lab Results 02/08/21 02/08/21 02/08/21 Range/Units 08:12 08:12 08:12 WBC 9.8 (3.8-10.6) k/uL RBC 4.71 (3.80-5.40) m/uL Hgb 14.7 (11.4-16.0) gm/dL Hct 45.5 (34.0-46.0) % MCV 96.5 (80.0-100.0) fL MCH 31.2 (25.0-35.0) pg MCHC 32.3 (31.0-37.0) g/dL RDW 13.1 (11.5-15.5) % Plt Count 313 (150-450) k/uL MPV 7.8 Neutrophils % 73 % Lymphocytes % 16 % Monocytes % 5 % Eosinophils % 4 % Basophils % 1 % Neutrophils # 7.2 (1.3-7.7) k/uL Lymphocytes # 1.6 (1.0-4.8) k/uL Monocytes # 0.5 (0-1.0) k/uL Eosinophils # 0.4 (0-0.7) k/uL Basophils # 0.1 (0-0.2) k/uL Sodium 137 (137-145) mmol/L Potassium 4.6 (3.5-5.1) mmol/L Chloride 101 (98-107) mmol/L Carbon Dioxide 26 (22-30) mmol/L Anion Gap 10 mmol/L BUN 14 (7-17) mg/dL Creatinine 0.69 (0.52-1.04) mg/dL Est GFR (CKD-EPI)AfAm >90 (>60 ml/min/1.73 sqM) Est GFR (CKD-EPI)NonAf >90 (>60 ml/min/1.73 sqM) Glucose 113 H (74-99) mg/dL Calcium 10.3 H (8.4-10.2) mg/dL Total Bilirubin 0.7 (0.2-1.3) mg/dL AST 28 (14-36) U/L ALT 14 (4-34) U/L Alkaline Phosphatase 69 (38-126) U/L Total Protein 7.7 (6.3-8.2) g/dL Albumin 4.7 (3.5-5.0) g/dL Urine Color Yellow Urine Appearance Cloudy H (Clear) Urine pH 6.0 (5.0-8.0) Ur Specific Sharon 1.018 (1.001-1.035) Urine Protein Trace H (Negative) Urine Glucose (UA) Negative (Negative) Urine Ketones Negative (Negative) Urine Blood Trace H (Negative) Urine Nitrite Negative (Negative) Urine Bilirubin Negative (Negative) Urine Urobilinogen <2.0 (<2.0) mg/dL Ur Leukocyte Esterase Negative (Negative) Urine RBC 2 (0-5) /hpf Urine WBC 3 (0-5) /hpf Ur Squamous Epith Cells 16 H (0-4) /hpf Urine Bacteria Rare H (None) /hpf Hyaline Casts 1 (0-2) /lpf Urine Mucus Rare H (None) /hpf - Radiology Data Radiology results: image reviewed (Chest x-ray reveals no acute process) Disposition Clinical Impression: Hypertension Disposition: HOME SELF-CARE Condition: Stable Instructions (If sedation given, give patient instructions): Hypertension (ED) Additional Instructions: Please do follow-up through primary care physician tomorrow as planned. Continue diltiazem as directed. Continue losartan. Continue Catapres 0.2 mg every 8 hours. This can be adjusted 0.1 per dose if needed for low for high blood pressure. This should be further directed 3 your primary care physician. Is patient prescribed a controlled substance at d/c from ED?: No Referrals: Isaias Hagen DO [Primary Care Provider] - 1-2 days Time of Disposition: 12:05
[2021-02-08 08:39] LABS: Basophils # (A) 0.1 k/uL (0-0.2); Basophils % (A) 1 %; Eosinophils # (A) 0.4 k/uL (0-0.7); Eosinophils % (A) 4 %; HCT 45.5 % (34.0-46.0); HGB 14.7 gm/dL (11.4-16.0); Lymphocytes # (A) 1.6 k/uL (1.0-4.8); Lymphocytes % (A) 16 %; MCH 31.2 pg (25.0-35.0); MCHC 32.3 g/dL (31.0-37.0); MCV 96.5 fL (80.0-100.0); Mean Platelet Volume 7.8; Monocytes # (A) 0.5 k/uL (0-1.0); Monocytes % (A) 5 %; Neutrophils # (A) 7.2 k/uL (1.3-7.7); Neutrophils % (A) 73 %; Platelet Count 313 k/uL (150-450); RBC 4.71 m/uL (3.80-5.40); RDW 13.1 % (11.5-15.5); WBC 9.8 k/uL (3.8-10.6)
[2021-02-08 08:43] LABS: Appearance,Urine Cloudy (Clear); Bacteria,Urine Rare /hpf; Bilirubin,Urine Negative (Negative); Blood,Urine Trace (Negative); Color,Urine Yellow; Glucose,Urine (UA) Negative (Negative); Hyaline Casts,Urine 1 /lpf (0-2); Ketones,Urine Negative (Negative); Leukocyte Esterase,Urine Negative (Negative); Mucus,Urine Rare /hpf; Nitrite,Urine Negative (Negative); Protein,Urine Trace (Negative); RBC,Urine 2 /hpf (0-5); Specific Gravity,Urine 1.018 (1.001-1.035); Squamous Epithelial Cell,Urine 16 /hpf (0-4); Urobilinogen,Urine <2.0 mg/dL (<2.0); WBC,Urine 3 /hpf (0-5)
[2021-02-08 08:47] LABS: ALT 14 U/L (4-34); AST 28 U/L (14-36); African American GFR (CKD) >90 (>60 ml/min/1.73 sqM); Albumin 4.7 g/dL (3.5-5.0); Alkaline Phosphatase 69 U/L (38-126); Anion Gap 10 mmol/L; Blood Urea Nitrogen 14 mg/dL (7-17); Calcium 10.3 mg/dL (8.4-10.2); Carbon Dioxide 26 mmol/L (22-30); Chloride 101 mmol/L (98-107); Glucose 113 mg/dL (74-99); Non-African American GFR(CKD) >90 (>60 ml/min/1.73 sqM); Sodium 137 mmol/L (137-145); Total Bilirubin 0.7 mg/dL (0.2-1.3); Total Protein 7.7 g/dL (6.3-8.2)
[2021-02-08 08:49] LABS: Potassium 4.6 mmol/L (3.5-5.1)
[2021-02-08] MEDS ORDERED: LORazepam 1 MG TAB PO STA (09:03)
[2021-02-08] MEDS ORDERED: ALPRAZolam 0.5 MG TAB PO STA (09:07)
--- NOTE | 2021-02-08 09:22 | XR ---
EXAMINATION TYPE: XR chest 2V DATE OF EXAM: 02/08/2021 COMPARISON: 09/06/2018 TECHNIQUE: PA and lateral views submitted. HISTORY: Hypertension FINDINGS: The lungs are clear and there is no pneumothorax, pleural effusion, or focal pneumonia. Hyperinflat ion. Heart size normal. Diffuse osteopenia. Hypertrophic and degenerative changes spine. No overt braulio lure. IMPRESSION: 1. No acute process. Correlate for asthma or COPD.
[2021-02-08] MEDS ORDERED: ACETAMINOPHEN TAB 325 MG TAB PO STA (09:24)
[2021-02-08] MEDS ORDERED: ONDANSETRON 4 MG/2 ML VIAL IVP STA (10:03)
[2021-02-08 10:37] VITALS: TEMP 97.5
[2021-02-08 11:51] VITALS: BP 105/72; PULSE 85; RESP 18
== END 2021-02-08 12:18 | disposition home or self-care (01) ==
LOC: EC 07:33
DX: I10 Essential (primary) hypertension (principal); C50.911 Malignant neoplasm of unspecified site of right female breast; E03.9 Hypothyroidism, unspecified; F41.9 Anxiety disorder, unspecified; F32.9 Major depressive disorder, single episode, unspecified; Z79.899 Other long term (current) drug therapy; Z79.890 Hormone replacement therapy
CPT/HCPCS: 36415; 93005; 80053; 85025; 81001; 71046; 99284; 96374; 96375; 96376; 96361 ×4; J0360; J2405

== ENCOUNTER → 2021-06-28 | Outpatient (CLI) | payer MEDICARE, BC ==
--- NOTE | 2021-06-28 14:16 | MM ---
Reason for exam: additional evaluation requested from prior study. Last mammogram was performed 1 year ago. History: Patient is postmenopausal and has history of breast cancer at age 61. Malignant MG pre op loc each addl RT of the right breast, February 20, 2017. Malignant MG pre op needle loc RT of the right breast, February 20, 2017. Malignant US biopsy breast VAD RT of the right breast, January 24, 2017. Malignant US biopsy breast add'l VAD RT of the right breast, January 24, 2017. Malignant US biopsy breast add'l VAD RT of the right breast, January 24, 2017. Mastectomy of the right breast, 2017. Took hormonal contraceptives for 5 years. Taking other hormone for 3 years beginning at age 61. Physical Findings: Nurse did not find any significant physical abnormalities on exam. MG 3D Diag Mammo W/Cad LT CC and MLO view(s) were taken of the left breast. Prior study comparison: June 24, 2020, left breast MG 3d diag mammo w/cad LT. June 23, 2019, left breast MG 3d diag mammo w/cad LT. There are scattered fibroglandular densities. No significant new findings when compared with previous films. These results were verbally communicated with the patient and result sheet given to the patient on 06/28/21. ASSESSMENT: Negative, BI-RAD 1 RECOMMENDATION: Follow-up diagnostic mammogram of the left breast in 6 months.
--- NOTE | 2021-06-28 18:55 | BD ---
EXAMINATION TYPE: Axial Bone Density DATE OF EXAM: 06/28/2021 COMPARISON: 06/23/2019 CLINICAL HISTORY: Postmenopausal screening Height: 62.5 IN Weight: 123 LBS RISK FACTORS HISTORY OF: Active: YES Diet low in dairy products/other sources of calcium: YES Postmenopausal woman: TOTAL HYST AGE 49 MEDICATIONS: Thyroid Medications: YES Which medication: Levothyroxine How Lon YEARS Osteoporosis Medications: ALENDRONATE SODIUM Which medication: ALENDRONATE SODIUM How Lon YEARS Additional Medications: CALCIUM, VIT D, ALENDRONATE SODIUM, LEVOTHYROXINE, LOSARTAN, LETROZOLE, OMEPR AZOLE, SERTRALINE, ATORVASTATIN, ALPRAZOLAM Additional History: BREAST CANCER EXAM MEASUREMENTS: Bone mineral densitometry was performed using the [employer]. Bone mineral density as measured about the Lumbar spine is: ----- L1-L4(G/cm2): 1.026 T Score Values are as follows: ----- L2: -1.1 ----- L3: -1.2 ----- L4: -1.8 ----- L1-L4: -1.3 Bone mineral density has: Increased 3.2% since study of: 06/23/2019 Bone mineral density about the R hip (g/cm2): 0.716 Bone mineral density about the L hip (g/cm2): 0.705 T Score values are as follows: -----R Neck: -2.3 -----L Neck: -2.4 -----R Total: -2.1 -----L Total: -2.1 Bone mineral density has: Decreased -2.1% since study of: 06/23/2019 IMPRESSION: Osteopenia (T Score between -2.5 and -1). Note that measurements are bordering on osteoporosis at the left hip. There is slightly increased risk of fracture and the patient may be considered for treatment. Re-Screen 2-5 years. NOTE: T-SCORE=SD OF THE YOUNG ADULT MEAN.
== END | disposition home or self-care (01) ==
LOC: RADMAMWWP 13:35
PROVIDERS: ATTEND Internal Medicine Hematology & Oncology
DX: Z08 Encounter for follow-up examination after completed treatment for malignant neoplasm (principal); Z85.3 Personal history of malignant neoplasm of breast; Z79.890 Hormone replacement therapy
CPT/HCPCS: 77080; 77065; G0279; 77061

== ENCOUNTER → 2021-07-18 | Outpatient (CLI) | payer MEDICARE, BC ==
[2021-07-18 16:13] LABS: African American GFR (CKD) 60.2 (60.0-200.0); Anion Gap 9.1 mmol/L (4.00-12.00); Calcium 10.5 mg/dL (8.7-10.3); Carbon Dioxide 28.9 mmol/L (21.6-31.8); Chol/HDL Ratio 4.07; LDL Cholesterol,Calculated 137.6 mg/dL (0.0-131.0); Non-African American GFR(CKD) 51.9 (60.0-200.0); VLDL Calculation 37.4 mg/dL (5.00-40.00)
== END | disposition home or self-care (01) ==
LOC: LABWHC1 08:06
PROVIDERS: ATTEND Nurse Practitioner Adult Health
DX: I10 Essential (primary) hypertension (principal); E78.5 Hyperlipidemia, unspecified; F17.200 Nicotine dependence, unspecified, uncomplicated
CPT/HCPCS: 36415; 80048; 80061; 83735

== ENCOUNTER → 2022-03-13 | Outpatient (CLI) | payer MEDICARE, BC ==
--- NOTE | 2022-03-15 10:34 | MM ---
Reason for exam: screening (asymptomatic). Last mammogram was performed 8 months ago. History: Patient is postmenopausal and has history of breast cancer at age 61. Malignant MG pre op loc each addl RT of the right breast, February 20, 2017. Malignant MG pre op needle loc RT of the right breast, February 20, 2017. Malignant US biopsy breast VAD RT of the right breast, January 24, 2017. Malignant US biopsy breast add'l VAD RT of the right breast, January 24, 2017. Malignant US biopsy breast add'l VAD RT of the right breast, January 24, 2017. Mastectomy of the right breast, 2017. Took hormonal contraceptives for 5 years. Taking other hormone for 3 years beginning at age 61. Physical Findings: A clinical breast exam by your physician is recommended on an annual basis and results should be correlated with mammographic findings. MG 3D Scr Lorenza Unilateral W/Cad CC and MLO view(s) were taken of the left breast. Prior study comparison: June 28, 2021, left breast MG 3d diag mammo w/cad LT. June 24, 2020, left breast MG 3d diag mammo w/cad LT. There are scattered fibroglandular densities. No significant changes when compared with prior studies. ASSESSMENT: Benign, BI-RAD 2 RECOMMENDATION: Routine screening mammogram of the left breast in 1 year.
== END | disposition home or self-care (01) ==
LOC: RADMAMWWP 08:17
PROVIDERS: ATTEND Internal Medicine Hematology & Oncology
DX: Z12.31 Encounter for screening mammogram for malignant neoplasm of breast (principal)
CPT/HCPCS: 77067

== ENCOUNTER 2022-03-22 06:34 | Day surgery (SDC) | payer MEDICARE, BC ==
[2022-03-20 14:41] VITALS: BMI 22.3
[~2022-03-22 06:34] MED LIST changes: -DEXAMETHASONE SOD PHOSPHATE 10 MG/ML 1 ML VIAL IV ONE; -HYDROmorphone 1 MG/ML 1 ML SYRINGE IVP PRN; +LIDOCAINE 1% (10MG/ML) FOR IV START INTRADERMA PRN; -LIDOCAINE 1% 20 ML VIAL (10MG/ML) FOR IV START INTRADERMA PRN; -ONDANSETRON 4 MG/2 ML VIAL IVP ONE; -Pre Op ABX Message 1 EACH MISC MISCELLANE ONE; -SCOPOLAMINE 1.5MG/72HR PATCH TRANSDERM ONE
[2022-03-22 07:35] VITALS: TEMP 97.6
[2022-03-22] MEDS ORDERED: LIDOCAINE 2% INJ 20 MG/ML (2 ML VIAL) ONE (07:37)
[2022-03-22] MEDS ORDERED: PROPOFOL 10 MG/ML 20 ML VIAL IV ONE (07:37)
--- NOTE | 2022-03-22 07:38 | P.GSHP ---
History of Present Illness H&P Date: 03/22/22 CHIEF COMPLAINT: Colon screen HISTORY OF PRESENT ILLNESS: The patient is a 66-year-old female who presents for colon screen. Lower endoscopy was offered for further evaluation and management. PAST MEDICAL HISTORY: Please see list. PAST SURGICAL HISTORY: Please see list. MEDICATIONS: Please see list. ALLERGIES: Please see list. SOCIAL HISTORY: No illicit drug use FAMILY HISTORY: No reports of Crohn disease or ulcerative colitis. REVIEW OF ORGAN SYSTEMS: CONSTITUTIONAL: No reports of fevers or chills. PHYSICAL EXAM: VITAL SIGNS: Stable GENERAL: Well-developed pleasant in no acute distress. HEENT: No scleral icterus. Extraocular movements grossly intact. Moist buccal mucosa. NECK: Supple without lymphadenopathy. CHEST: Unlabored respirations. Equal bilateral excursions. CARDIOVASCULAR: Regular rate and rhythm. Distal 2+ pulses. ABDOMEN: Soft, nontender, nondistended. MUSCULOSKELETAL: No clubbing, cyanosis, or edema. ASSESSMENT: 1. Colon screen. PLAN: 1. Recommend proceeding with a lower endoscopy Past Medical History Past Medical History: Cancer, COPD, Hypertension, Thyroid Disorder Additional Past Medical History / Comment(s): R breast cancer with mastectomy (2017)., hypothyroid History of Any Multi-Drug Resistant Organisms: None Reported Past Surgical History: Breast Surgery, Hysterectomy, Tonsillectomy Additional Past Surgical History / Comment(s): R breast biopsy, R breast lumpectomy, R masectomy, R arm muscle biopsy ., D&C, LEEP, Total hysterectomy. Past Anesthesia/Blood Transfusion Reactions: Previous Problems w/ Anesthesia, Postoperative Nausea & Vomiting (PONV) Additional Past Anesthesia/Blood Transfusion Reaction / Comment(s): Severe PONV. Smoking Status: Former smoker - Past Family History Mother Family Medical History: No Reported History Additional Family Medical History / Comment(s): Mother from heart problems at the age of 77yrs. Father Family Medical History: COPD Additional Family Medical History / Comment(s): Father at the age of 86yrs. Medications and Allergies Home Medications Medication Instructions Recorded Confirmed Type ALPRAZolam [Xanax] 0.25 mg PO BID PRN 08/17/17 03/22/22 History Sertraline [Zoloft] 200 mg PO HS 09/06/18 03/22/22 History Atorvastatin [Lipitor] 10 mg PO HS 02/08/21 03/22/22 History Latanoprost/Pf [Latanoprost 0.005% 1 drop BOTH EYES HS 02/08/21 03/22/22 History Eye Drop] Levothyroxine Sodium [Synthroid] 112.5 mcg PO SUSA 02/08/21 03/22/22 History Calcium Carbonate/Vitamin D3 1 tab PO BID 11/25/21 03/22/22 History [Calcium 600 mg-D3 20 mcg (800 unit)] Levothyroxine Sodium [Synthroid] 75 mcg PO MOTUWETHFR 11/25/21 03/22/22 History Losartan/Hydrochlorothiazide 100 mg PO DAILY 11/25/21 03/22/22 History [Losartan-Hctz 100-25 mg Tab] Metoprolol Succinate (ER) [Toprol 50 mg PO HS 11/25/21 03/22/22 History Xl] Omeprazole [PriLOSEC] 40 mg PO DAILY 11/25/21 03/22/22 History amLODIPine BESYLATE 5 mg PO HS 11/25/21 03/22/22 History Albuterol Sulfate [Albuterol 2 puff INHALATION QID PRN 03/20/22 03/22/22 History Sulfate Hfa] hydroCHLOROthiazide [Hydrodiuril] 25 mg PO DAILY 03/20/22 03/22/22 History Allergies Allergy/AdvReac Type Severity Reaction Status Date / Time adhesive tape Allergy SKIN Verified 03/22/22 07:20 BLISTERS Surgical - Exam Vital Signs Temp Pulse Resp BP Pulse Ox 97.6 F 71 18 144/83 94 L 03/22/22 07:27 03/22/22 07:27 03/22/22 07:27 03/22/22 07:27 03/22/22 07:27
--- NOTE | 2022-03-22 08:09 | P.PCN ---
Date of Procedure: 03/22/22 Description of Procedure: PREOPERATIVE DIAGNOSIS: History of colon polyps POSTOPERATIVE DIAGNOSIS: History of colon polyps Sigmoid diverticulosis with partial obstruction Internal/external hemorrhoids, grade 3 OPERATION: Colonoscopy to the cecum, ileocecal valve and appendiceal orifice. SURGEON: Jordyn Velázquez MD. ANESTHESIA: MAC. INDICATIONS: The patient is a 66-year-old female who presents for colonoscopy screening. Benefits and risks were described and informed consent was obtained. DESCRIPTION OF PROCEDURE: The patient had undergone Sutab prep. The patient had been brought into the operating room and laid in the left lateral decubitus position. After adequate intravenous sedation, the rectum was examined with 2% lidocaine jelly. External hemorrhoids were encountered. The rectal tone was within normal limits. No lesions were palpated in the rectal vault. An Olympus colonoscope was advanced until the cecum, ileocecal valve viewed. The prep was fair. Sigmoid diverticulosis with partial obstruction was found requiring careful maneuvering and abdominal wall pressure. No colonic polyps were found. No evidence of focal colitis was found. Retroflexion of the scope demonstrated grade 3 internal hemorrhoids without active bleeding or inflammation. The colon was desufflated. The patient had tolerated the procedure well. Withdrawal time was over 6 minutes. FINDINGS: Aronchick preparation quality scale 2 (1-5) Internal hemorrhoids, grade 3 External prolapsed hemorrhoids, grade 3 Sigmoid diverticulosis with partial obstruction between 20-25 cm from the anal verge Diverticulosis between 25 cm to 10 cm from the anal verge No arteriovenous malformations. No adenomatous polyps. No focal colitis. RECOMMENDATIONS: Lower endoscopy in 5 years2026 Plan - Discharge Summary Discharge Rx Participant: No New Discharge Prescriptions: Continue ALPRAZolam [Xanax] 0.25 mg PO BID PRN PRN Reason: Anxiety Sertraline [Zoloft] 200 mg PO HS Latanoprost/Pf [Latanoprost 0.005% Eye Drop] 1 drop BOTH EYES HS Levothyroxine Sodium [Synthroid] 112.5 mcg PO SUSA Atorvastatin [Lipitor] 10 mg PO HS Omeprazole [PriLOSEC] 40 mg PO DAILY Losartan/Hydrochlorothiazide [Losartan-Hctz 100-25 mg Tab] 100 mg PO DAILY Levothyroxine Sodium [Synthroid] 75 mcg PO MOTUWETHFR Calcium Carbonate/Vitamin D3 [Calcium 600 mg-D3 20 mcg (800 unit)] 1 tab PO BID Metoprolol Succinate (ER) [Toprol XL] 50 mg PO HS amLODIPine BESYLATE 5 mg PO HS hydroCHLOROthiazide [Hydrodiuril] 25 mg PO DAILY Albuterol Sulfate [Albuterol Sulfate Hfa] 2 puff INHALATION QID PRN PRN Reason: Shortness Of Breath Discharge Medication List ALPRAZolam [Xanax] 0.25 mg PO BID PRN 08/17/17 [History] Sertraline [Zoloft] 200 mg PO HS 09/06/18 [History] Atorvastatin [Lipitor] 10 mg PO HS 02/08/21 [History] Latanoprost/Pf [Latanoprost 0.005% Eye Drop] 1 drop BOTH EYES HS 02/08/21 [History] Levothyroxine Sodium [Synthroid] 112.5 mcg PO SUSA 02/08/21 [History] Calcium Carbonate/Vitamin D3 [Calcium 600 mg-D3 20 mcg (800 unit)] 1 tab PO BID 11/25/21 [History] Levothyroxine Sodium [Synthroid] 75 mcg PO MOTUWETHFR 11/25/21 [History] Losartan/Hydrochlorothiazide [Losartan-Hctz 100-25 mg Tab] 100 mg PO DAILY 11/25/21 [History] Metoprolol Succinate (ER) [Toprol XL] 50 mg PO HS 11/25/21 [History] Omeprazole [PriLOSEC] 40 mg PO DAILY 11/25/21 [History] amLODIPine BESYLATE 5 mg PO HS 11/25/21 [History] Albuterol Sulfate [Albuterol Sulfate Hfa] 2 puff INHALATION QID PRN 03/20/22 [History] hydroCHLOROthiazide [Hydrodiuril] 25 mg PO DAILY 03/20/22 [History] Follow up Appointment(s)/Referral(s): Jordyn Velázquez MD [STAFF PHYSICIAN] - 04/04/22 Patient Instructions/Handouts: Diverticulosis Diet (GEN), Diverticulosis (GEN) Activity/Diet/Wound Care/Special Instructions: Repeat colonoscopy in 5 years, 2026 Discharge Disposition: HOME SELF-CARE
[2022-03-22 08:15] VITALS: RESP 16
[2022-03-22 08:25] VITALS: BP 121/77; PULSE 64
== END 2022-03-22 08:57 | disposition home or self-care (01) ==
LOC: ORWHC2ENDO 06:34
PROVIDERS: ATTEND Surgery Plastic and Reconstructive Surgery
DX: K57.30 Diverticulosis of large intestine without perforation or abscess without bleeding (principal); K64.4 Residual hemorrhoidal skin tags; K64.8 Other hemorrhoids; E03.9 Hypothyroidism, unspecified; I10 Essential (primary) hypertension; J44.9 Chronic obstructive pulmonary disease, unspecified; Z79.899 Other long term (current) drug therapy; Z85.3 Personal history of malignant neoplasm of breast; Z87.891 Personal history of nicotine dependence
CPT/HCPCS: 45378; J2704; J2001

== ENCOUNTER → 2023-04-09 | Outpatient (CLI) | payer MEDICARE, BC ==
--- NOTE | 2023-04-09 18:54 | MM ---
Reason for Exam: Screening (asymptomatic). Last mammogram was performed 1 year(s) and 1 month(s) ago. Patient History: Menarche at age 13. First Full-Term at age 20. Left ovary removed at age 62. Right ovary removed at age 62. Hysterectomy at age 62. Postmenopausal. Breast cancer, age 61. Patient used Hormonal Contraceptives for 5 years. 2017, Mastectomy on the Right side. 02/20/2017, Malignant Core Biopsy on the right side. 02/20/2017, Malignant Core Biopsy on the right side. 01/24/2017, Malignant Core Biopsy on the right side. 01/24/2017, Malignant Core Biopsy on the right side. 01/24/2017, Malignant Core Biopsy on the right side. Prior Study Comparison: 06/24/2020 Left Diagnostic Mammogram, [facility]. 06/28/2021 Left Diagnostic Mammogram, [facility]. 03/13/2022 Bilateral Screening Mammogram, [facility]. Tissue Density: Left: There are scattered fibroglandular densities. Findings: Pattern is stable. There is a focal asymmetry in the upper-outer aspect left breast unchanged. No significant interval change is evident No suspicious groups of microcalcifications, spiculated or lobular masses, architectural distortion or other secondary signs of malignancy are mammographically apparent. Overall Assessment: Benign, BI-RAD 2 Management: Screening Mammogram of the left breast in 1 year. A negative mammogram report should not preclude additional follow up of suspicious palpable abnormalities. Patient should continue monthly self breast exam. A clinical breast exam by your physician is recommended on an annual basis and results should be correlated with mammographic findings. Electronically signed and approved by: Allen Doyle D.O. Radiologis
== END | disposition home or self-care (01) ==
LOC: RADMAMWWP 07:36
PROVIDERS: ATTEND Internal Medicine Hematology & Oncology
DX: Z12.31 Encounter for screening mammogram for malignant neoplasm of breast (principal); Z78.0 Asymptomatic menopausal state
CPT/HCPCS: 77067

== ENCOUNTER 2023-07-18 09:23 | Inpatient (IN) | payer MEDICARE, BC ==
[2023-07-13 10:56] VITALS: BMI 20.2
--- NOTE | 2023-07-18 09:07 | P.GSHP ---
History of Present Illness H&P Date: 07/18/23 CHIEF COMPLAINT: GERD HISTORY OF PRESENT ILLNESS: The patient is a 68-year-old female who presents reports gastroesophageal reflux disease. Upper endoscopy was offered for further evaluation and management. PAST MEDICAL HISTORY: Please see list. PAST SURGICAL HISTORY: Please see list. MEDICATIONS: Please see list. ALLERGIES: Please see list. SOCIAL HISTORY: No illicit drug use FAMILY HISTORY: No reports of Crohn disease or ulcerative colitis. REVIEW OF ORGAN SYSTEMS: CONSTITUTIONAL: No reports of fevers or chills. GI: Denies any blood in stools or constipation. PHYSICAL EXAM: VITAL SIGNS: Stable GENERAL: Well-developed and pleasant in no acute distress. HEENT: No scleral icterus. Extraocular movements grossly intact. Moist buccal mucosa. NECK: Supple without lymphadenopathy. CHEST: Unlabored respirations. Equal bilateral excursions. CARDIOVASCULAR: Regular rate and rhythm. Distal 2+ pulses. ABDOMEN: Soft, nondistended. MUSCULOSKELETAL: No clubbing, cyanosis, or edema. ASSESSMENT: 1. Gastroesophageal reflux disease PLAN: 1. Recommend proceeding with an upper endoscopy Past Medical History Past Medical History: Cancer, COPD, GERD/Reflux, Hyperlipidemia, Hypertension, Thyroid Disorder Additional Past Medical History / Comment(s): R breast cancer with mastectomy (2017)., hypothyroid History of Any Multi-Drug Resistant Organisms: None Reported Past Surgical History: Breast Surgery, Heart Catheterization With Stent, Hysterectomy, Tonsillectomy Additional Past Surgical History / Comment(s): R breast biopsy, R breast lumpectomy, R masectomy, R arm muscle biopsy ., D&C, LEEP, Total hysterectomy. COLONOSCOPY Past Anesthesia/Blood Transfusion Reactions: Postoperative Nausea & Vomiting (PONV) Additional Past Anesthesia/Blood Transfusion Reaction / Comment(s): Severe PONV. Date of Last Stent Placement:: 01/23/23 Smoking Status: Former smoker - Past Family History Mother Family Medical History: No Reported History Additional Family Medical History / Comment(s): Mother from heart problems at the age of 77yrs. Father Family Medical History: COPD Additional Family Medical History / Comment(s): Father at the age of 86yrs. Medications and Allergies Home Medications Medication Instructions Recorded Confirmed Type ALPRAZolam [Xanax] 0.25 mg PO BID PRN 08/17/17 07/13/23 History Sertraline [Zoloft] 200 mg PO HS 10/12/18 08/18/23 History Latanoprost/Pf [Latanoprost 0.005% 1 drop BOTH EYES HS 02/08/21 07/13/23 History Eye Drop] Levothyroxine Sodium [Synthroid] 112.5 mcg PO SUSA 02/08/21 07/13/23 History Calcium Carbonate/Vitamin D3 1 tab PO BID 11/25/21 07/13/23 History [Calcium 600 mg-D3 20 mcg (800 unit)] Levothyroxine Sodium [Synthroid] 75 mcg PO MOTUWETHFR 11/25/21 07/13/23 History Metoprolol Succinate (ER) [Toprol 50 mg PO HS 11/25/21 07/13/23 History XL] amLODIPine BESYLATE 5 mg PO HS 11/25/21 07/13/23 History Albuterol Sulfate [Albuterol 2 puff INHALATION QID PRN 03/20/22 07/13/23 History Sulfate Hfa] hydroCHLOROthiazide [Hydrodiuril] 25 mg PO DAILY 03/20/22 07/13/23 History Albuterol Nebulized [Ventolin 2.5 mg INHALATION Q6H PRN 01/17/23 07/13/23 History Nebulized] Losartan Potassium [Cozaar] 100 mg PO DAILY 01/17/23 07/13/23 History Aspirin 81 mg PO DAILY #90 tab 01/24/23 07/13/23 Rx Atorvastatin Calcium [Lipitor] 80 mg PO DAILY #90 tablet 01/24/23 07/13/23 Rx Clopidogrel [Plavix] 75 mg PO DAILY 07/13/23 07/13/23 History Famotidine 40 mg PO BID 07/13/23 07/13/23 History Allergies Allergy/AdvReac Type Severity Reaction Status Date / Time adhesive tape Allergy SKIN Verified 07/13/23 10:45 BLISTERS
[2023-07-18] MEDS: LACTATED RINGERS 1,000 ML IV SCH (10:50)
[2023-07-18] MEDS ORDERED: PROPOFOL 10 MG/ML 20 ML VIAL IV ONE (11:39)
[2023-07-18] MEDS ORDERED: LIDOCAINE 2% INJ 20 MG/ML (2 ML VIAL) ONE (11:39)
[2023-07-18] MEDS ORDERED: NALOXONE 0.4 MG/ML 1 ML VIAL IV PRN (11:58)
[2023-07-18] MEDS ORDERED: ONDANSETRON 4 MG/2 ML VIAL IVP PRN (11:58)
--- NOTE | 2023-07-18 11:58 | P.PCN ---
Date of Procedure: 07/18/23 Description of Procedure: PREOPERATIVE DIAGNOSIS: Dysphagia. Gastroesophageal reflux disease Hiatal hernia POSTOPERATIVE DIAGNOSIS: Upper esophageal stricture Esophageal tear, submucosal OPERATION: Esophagogastroduodenoscopy with rigid dilator over the guidewire 51 Fr. SURGEON: Jordyn Velázquez MD ANESTHESIA: MAC. INDICATIONS: The patient is a 68-year-old male who presents with a history of dysphagia. Benefits and risks of the procedure were described. Informed consent was obtained. DESCRIPTION: The patient was brought into the endoscopy suite and laid in the left lateral decubitus position. After a timeout was confirmed, the procedure was initiated. An Olympus gastroscope was passed and the stomach was entered. Mild gastritis was identified. The scope was advanced to the duodenum which was unremarkable. Retroflexion the scope confirmed a Hill grade 2 lower esophageal valve. Next using an [place] rigid dilator, a guidewire was placed through the pediatric gastroscope. Next the scope was withdrawn. A 51-Lebanese rigid [place] dilator was passed carefully along the posterior oropharynx to 45 cm and left in place for 2-3 minutes stretch. The dilator was withdrawn including the guidewire. The scope was reentered along the posterior oropharynx with mucosal tear of the upper esophageal sphincter. Next, inflammation of the antrum was identified. [id number] injury was encountered. The GI tract was desufflated. The patient tolerated the procedure well. FINDINGS: Squamocolumnar junction unremarkable at 35 cm. Upper esophageal stricture Bolivian rigid dilator 51-Lebanese completed. Diaphragmatic hiatal hernia, 2 cm Diffuse gastritis. Hill grade 2 lower esophageal valve. LA grade B esophagitis. RECOMMENDATIONS: Admission for mucosal esophageal tear with nothing by mouth and antibiotics
--- NOTE | 2023-07-18 12:56 | XR ---
EXAMINATION TYPE: XR abdomen 1V DATE OF EXAM: 07/18/2023 COMPARISON: NONE HISTORY: Pain TECHNIQUE: One view abdominal series FINDINGS: The osseous structures are intact. The bowel gas pattern is nonspecific. Lung scoliosis of the spine . Arthropathy of the hips. Calcifications in the pelvis appear vascular. Osteitis pubis then advanced .. IMPRESSION: 1. Nonspecific abdomen.
--- NOTE | 2023-07-18 14:11 | FL ---
EXAMINATION TYPE: FL esophagus cervic/pharynx DATE OF EXAM: 07/18/2023 COMPARISON: None HISTORY: Mucosal injury proximal esophagus Contrast: Isovue 370 Technique: Fluoroscopy: Fluoroscopy time: 19 seconds DAP: 728.98. Images: 114 FINDINGS: Single contrast water soluble esophagram is performed. No extravasation of contrast is evident. No mu cosal abnormality is identified on this single contrast study. The cervical esophagus, the reported i njury site, appears unremarkable. IMPRESSION: 1. NO SUSPICIOUS MUCOSAL ABNORMALITY WATER-SOLUBLE CONTRAST ESOPHAGRAM.
[2023-07-18] MEDS ORDERED: SODIUM CHLORIDE 0.9% 1,000 ML IV ONE (19:24)
[2023-07-18] MEDS ORDERED: ALBUTEROL NEBULIZED 2.5 MG/3 ML INHALATION PRN ×2 (19:25)
[2023-07-18] MEDS ORDERED: LATANOPROST 0.005% OPHTH DROPS 2.5 ML BTL BOTH EYES SCH (21:00)
[2023-07-18] MEDS: HEPARIN SODIUM,PORCINE 5,000 UNIT/ML 1 ML VIAL SQ SCH (21:13)
[2023-07-18] MEDS: CHLORHEXIDINE GLUCONATE 15 ML CUP MUCOUS MEM SCH (21:20)
[2023-07-19] MEDS: SODIUM CHLORIDE 0.9% 1,000 ML IV SCH ×2 (00:02→10:19)
[2023-07-19] MEDS: LACTATED RINGERS 1,000 ML IV SCH (03:35)
[2023-07-19] MEDS: HEPARIN SODIUM,PORCINE 5,000 UNIT/ML 1 ML VIAL SQ SCH (08:47)
[2023-07-19] MEDS ORDERED: PANTOPRAZOLE 40 MG/10 ML VIAL IV SCH (09:00)
[2023-07-19] MEDS: CHLORHEXIDINE GLUCONATE 15 ML CUP MUCOUS MEM SCH (10:16)
[2023-07-19 12:33] LABS: Basophils % (A) 0 %; Eosinophils # (A) 0.2 k/uL (0-0.7); Eosinophils % (A) 2 %; HCT 38.3 % (34.0-46.0); HGB 12.6 gm/dL (11.4-16.0); Lymphocytes # (A) 1.1 k/uL (1.0-4.8); Lymphocytes % (A) 10 %; MCH 32.3 pg (25.0-35.0); MCV 97.9 fL (80.0-100.0); Mean Platelet Volume 7.2; Monocytes # (A) 0.6 k/uL (0-1.0); Monocytes % (A) 5 %; Neutrophils # (A) 9.3 k/uL (1.3-7.7); Neutrophils % (A) 83 %; Platelet Count 307 k/uL (150-450); RBC 3.91 m/uL (3.80-5.40); RDW 13.6 % (11.5-15.5); WBC 11.2 k/uL (3.8-10.6)
[2023-07-19 13:40] VITALS: RESP 17; TEMP 97.7
[2023-07-19 14:32] LABS: Basophils # (A) 0.06 X 10*3/uL (0.00-0.10); Basophils % (A) 0.6 %; Eosinophils # (A) 0.07 X 10*3/uL (0.04-0.35); Eosinophils % (A) 0.7 %; HCT 35.5 % (37.2-46.3); HGB 12.2 d/dL (12.0-15.0); Lymphocytes # (A) 1.15 X 10*3/uL (0.90-5.00); Lymphocytes % (A) 11.5 %; MCH 32.4 pg (27.0-32.0); MCHC 34.4 d/dL (32.0-37.0); MCV 94.2 FL (80.0-97.0); Mean Platelet Volume 9.5 FL (9.5-12.2); Monocytes # (A) 0.99 X 10*3/uL (0.20-1.00); Monocytes % (A) 9.9 %; NRBC Per 100 WBC 0 X 10*3/uL (0.00-0.01); Neutrophils # (A) 7.59 X 10*3/uL (1.80-7.70); Neutrophils % (A) 76.1 %; Platelet Count 313 X 10*3/uL (140-440); RBC 3.77 X 10*6/uL (4.10-5.20); RDW 13.8 % (11.5-14.5); WBC 9.98 X 10*3/uL (4.50-10.00)
--- NOTE | 2023-07-19 14:51 | CT ---
EXAMINATION TYPE: CT chest wo con CT DLP: 235.4 mGycm, Automated exposure control for dose reduction was used. DATE OF EXAM: 07/19/2023 2:40 PM COMPARISON: Sonogram 07/18/2023 CLINICAL INDICATION:Female, 68 years old with history of esophageal tear, hiatal hernia follow up; PH H, f/u for esophageal tear, hiatal hernia TECHNIQUE: Multiple axial images were obtained through the chest without IV contrast. Lack of IV or o ral contrast limits evaluation of solid and hollow organ viscera. . Coronal and sagittal reformats re viewed. FINDINGS: LUNGS/ PLEURA: No pneumothorax. Elevation left hemidiaphragm. Mild centrilobular emphysematous change s. Right apical pleural-parenchymal scarring. Right lower lobe linear atelectasis. AIRWAY: Patent and unremarkable.. HEART: Size within normal limits. No pericardial effusion. Moderate coronary artery calcifications. MEDIASTINUM: No gross evidence of adenopathy. VASCULATURE: No aortic aneurysm. Ectasia of the ascending thoracic aorta measuring up to 3.9 cm. Ath erosclerotic calcification of the aorta and its branches. MUSCULOSKELETAL: Mild disc degeneration changes are present throughout the thoracolumbar spine. No ac [place] osseous abnormality. Mild S-shaped scoliotic curvature. SOFT TISSUES/LYMPH NODES: Unremarkable. LOWER NECK: No significant findings. UPPER ABDOMEN: Contrast demonstrated within the colon from prior examination. No perigastric or parae sophageal fluid collections identified. No free air. No retained extravasation of contrast. IMPRESSION: 1. No perigastric or paraesophageal fluid collections or retained extravasation of contrast to sugges t tear. 2. Ascending thoracic aortic ectasia measuring up to 3.9 cm. 3. COPD changes with elevation of the left hemidiaphragm.
[2023-07-19 15:34] VITALS: BP 136/81; PULSE 73
--- NOTE | 2023-07-19 16:00 | P.DS ---
Providers Date of admission: 07/18/23 12:00 Expected date of discharge: 07/19/23 Attending physician: Jordyn Velázquez Primary care physician: Isaias Hagen [facility] Course: Discharge diagnosis Upper esophageal stricture Esophageal tear, submucosal Hospital course This is a 68-year-old female who presented with dysphagia. She status post EGD with dilation. Patient tolerating liquids. She denies any pain. She's afebrile. Chest CT shows no perigastric or paraesophageal fluid collections or retained extravasation of contrast to suggest tear. Patient is stable for discharge. Physician Dental Nurse note has been reviewed by physician. Signing provider agrees with the documented findings, assessment, and plan of care. Patient Condition at Discharge: Stable Plan - Discharge Summary Discharge Rx Participant: Yes New Discharge Prescriptions: New Chlorhexidine Gluconate [Peridex] 15 ml PO BID #473 ml Amoxic-Pot Clav 400-57Mg/5Ml [Augmentin 400-57 mg/5 ml Susp] 10 ml PO Q12H #200 ml Continue ALPRAZolam [Xanax] 0.25 mg PO BID PRN PRN Reason: Anxiety Sertraline [Zoloft] 200 mg PO HS Latanoprost/Pf [Latanoprost 0.005% Eye Drop] 1 drop BOTH EYES HS Levothyroxine Sodium [Synthroid] 112.5 mcg PO SUSA Losartan Potassium [Cozaar] 100 mg PO DAILY Albuterol Nebulized [Ventolin Nebulized] 2.5 mg INHALATION Q6H PRN PRN Reason: Shortness Of Breath Or Wheezing Aspirin 81 mg PO DAILY #90 tab Famotidine 40 mg PO BID Levothyroxine Sodium [Synthroid] 75 mcg PO MOTUWETHFR Calcium Carbonate/Vitamin D3 [Calcium 600 mg-D3 20 mcg (800 unit)] 1 tab PO BID Metoprolol Succinate (ER) [Toprol XL] 50 mg PO HS amLODIPine BESYLATE 5 mg PO HS hydroCHLOROthiazide [Hydrodiuril] 25 mg PO DAILY Albuterol Sulfate [Albuterol Sulfate Hfa] 2 puff INHALATION QID PRN PRN Reason: Shortness Of Breath Atorvastatin Calcium [Lipitor] 80 mg PO DAILY #90 tablet No Action Clopidogrel [Plavix] 75 mg PO DAILY Discharge Medication List ALPRAZolam [Xanax] 0.25 mg PO BID PRN 09/22/17 [History] Sertraline [Zoloft] 200 mg PO HS 09/06/18 [History] Latanoprost/Pf [Latanoprost 0.005% Eye Drop] 1 drop BOTH EYES HS 02/08/21 [History] Levothyroxine Sodium [Synthroid] 112.5 mcg PO SUSA 02/08/21 [History] Calcium Carbonate/Vitamin D3 [Calcium 600 mg-D3 20 mcg (800 unit)] 1 tab PO BID 11/25/21 [History] Levothyroxine Sodium [Synthroid] 75 mcg PO MOTUWETHFR 11/25/21 [History] Metoprolol Succinate (ER) [Toprol XL] 50 mg PO HS 11/25/21 [History] amLODIPine BESYLATE 5 mg PO HS 11/25/21 [History] Albuterol Sulfate [Albuterol Sulfate Hfa] 2 puff INHALATION QID PRN 03/20/22 [History] hydroCHLOROthiazide [Hydrodiuril] 25 mg PO DAILY 03/20/22 [History] Albuterol Nebulized [Ventolin Nebulized] 2.5 mg INHALATION Q6H PRN 01/17/23 [History] Losartan Potassium [Cozaar] 100 mg PO DAILY 01/17/23 [History] Aspirin 81 mg PO DAILY #90 tab 01/24/23 [Rx] Atorvastatin Calcium [Lipitor] 80 mg PO DAILY #90 tablet 01/24/23 [Rx] Clopidogrel [Plavix] 75 mg PO DAILY 07/13/23 [History] Famotidine 40 mg PO BID 07/13/23 [History] Amoxic-Pot Clav 400-57Mg/5Ml [Augmentin 400-57 mg/5 ml Susp] 10 ml PO Q12H #200 ml 07/19/23 [Rx] Chlorhexidine Gluconate [Peridex] 15 ml PO BID #473 ml 07/19/23 [Rx] Follow up Appointment(s)/Referral(s): Jordyn Velázquez MD [STAFF PHYSICIAN] - 07/24/23 Patient Instructions/Handouts: Upper Endoscopy (DC) Activity/Diet/Wound Care/Special Instructions: Hold Plavix until seen by surgeon Discharge Disposition: HOME SELF-CARE
== END 2023-07-19 16:13 | disposition home or self-care (01) | DRG 921 ==
LOC: ORWHC2ENDO 09:23 → 4SSUR 11:56 → ORWHC2ENDO 12:00
PROVIDERS: ADMIT Surgery Plastic and Reconstructive Surgery; ATTEND Surgery Plastic and Reconstructive Surgery
PROC: 0D758ZZ Dilation of Esophagus, Via Natural or Artificial Opening Endoscopic (ICD-10-PCS; principal; 2023-07-18 10:15)
DX: K91.71 Accidental puncture and laceration of a digestive system organ or structure during a digestive system procedure (principal); K21.00 Gastro-esophageal reflux disease with esophagitis, without bleeding; R13.10 Dysphagia, unspecified; K44.9 Diaphragmatic hernia without obstruction or gangrene; K29.70 Gastritis, unspecified, without bleeding; K22.2 Esophageal obstruction; J44.9 Chronic obstructive pulmonary disease, unspecified; I10 Essential (primary) hypertension; E78.5 Hyperlipidemia, unspecified; E03.9 Hypothyroidism, unspecified; Z95.5 Presence of coronary angioplasty implant and graft; Z87.891 Personal history of nicotine dependence; Z85.3 Personal history of malignant neoplasm of breast; Z79.899 Other long term (current) drug therapy; Z79.890 Hormone replacement therapy; Z79.82 Long term (current) use of aspirin; Z79.02 Long term (current) use of antithrombotics/antiplatelets
CPT/HCPCS: 43249; 71250; 74018; 74210; 85025

== ENCOUNTER 2023-11-24 08:44 | Emergency (ER) | payer MEDICARE, BC ==
[2023-11-24 10:01] LABS: Basophils % (A) 0 %; Eosinophils # (A) 0.2 k/uL (0-0.7); Eosinophils % (A) 2 %; HCT 38.5 % (34.0-46.0); HGB 12.9 gm/dL (11.4-16.0); Lymphocytes % (A) 8 %; MCH 32.7 pg (25.0-35.0); MCHC 33.5 g/dL (31.0-37.0); MCV 97.8 fL (80.0-100.0); Mean Platelet Volume 7.6; Monocytes # (A) 0.5 k/uL (0-1.0); Monocytes % (A) 4 %; Neutrophils # (A) 10.1 k/uL (1.3-7.7); Neutrophils % (A) 85 %; Platelet Count 237 k/uL (150-450); RBC 3.93 m/uL (3.80-5.40); RDW 13.1 % (11.5-15.5); WBC 11.9 k/uL (3.8-10.6)
--- NOTE | 2023-11-24 10:23 | XR ---
EXAMINATION TYPE: XR chest 2V DATE OF EXAM: 11/24/2023 9:00 AM CLINICAL INDICATION:Female, 68 years old with history of LAKESHA; [facility] COMPARISON: Chest x-ray 03/22/2023, CT chest 07/19/2023 TECHNIQUE: XR chest 2V. Frontal PA and lateral views of the chest. FINDINGS: Lines/Tubes: None. Heart/mediastinum: Heart size upper normal. Tortuous aorta with atherosclerotic calcifications. Sta ble mildly prominent left hilum likely vascular shadow. Pulmonary vascularity: Mild pulmonary vascular congestion. Lungs/Pleura: Lungs appear mildly hyperinflated with interstitial coarsening suggesting COPD. Similar findings at the left lung base shown on CT to be elevation of the left hemidiaphragm with adjacent a telectasis/scarring. Small left pleural effusion could be present. No pneumothorax is seen. Musculoskeletal: No acute osseous abnormality demonstrated in the limits of the exam. Other findings: None. IMPRESSION: 1. Mild pulmonary vascular congestion with possible small left pleural effusion. 2. Otherwise similar findings at the left lung base with elevation of the left hemidiaphragm and ate lectasis/scarring.
[2023-11-24 10:30] LABS: ALT 29 U/L (4-34); AST 30 U/L (14-36); African American GFR (CKD) >90 (>60 ml/min/1.73 sqM); Albumin 3.7 g/dL (3.5-5.0); Alkaline Phosphatase 103 U/L (38-126); Anion Gap 12 mmol/L; Blood Urea Nitrogen 9 mg/dL (7-17); Calcium 9.3 mg/dL (8.4-10.2); Carbon Dioxide 23 mmol/L (22-30); Chloride 93 mmol/L (98-107); Glucose 119 mg/dL (74-99); Non-African American GFR(CKD) >90 (>60 ml/min/1.73 sqM); Potassium 3.1 mmol/L (3.5-5.1); Sodium 128 mmol/L (137-145); Total Bilirubin 0.4 mg/dL (0.2-1.3); Total Protein 6.2 g/dL (6.3-8.2)
[2023-11-24] MEDS ORDERED: IPRATROPIUM-ALBUTEROL 3 ML NEB INHALATION STA ×2 (11:30→11:33)
[2023-11-24] MEDS ORDERED: methylPREDNISolone SOD SUCCI 125 MG/2 ML VIAL IV STA (11:33)
[2023-11-24] MEDS ORDERED: OSELTAMIVIR 75 MG CAP PO STA (11:34)
--- NOTE | 2023-11-24 11:34 | ED ---
General Adult HPI - General Chief complaint: Shortness of Breath Stated complaint: LAKESHA Time Seen by Provider: 11/24/23 08:48 Source: patient, RN notes reviewed, old records reviewed Mode of arrival: ambulatory Limitations: no limitations - History of Present Illness Initial comments: 68 yo female presenting with 4 days of cough, congestion. Patient states she does have COPD. She does not wear home oxygen. She denies fever. She denies central chest pain. She denies lower extremity pain or swelling. No vomiting or diarrhea. - Related Data Home Medications Medication Instructions Recorded Confirmed ALPRAZolam [Xanax] 0.25 mg PO BID PRN 08/17/17 07/13/23 Sertraline [Zoloft] 200 mg PO HS 09/06/18 07/13/23 Latanoprost/Pf [Latanoprost 0.005% 1 drop BOTH EYES HS 02/08/21 07/13/23 Eye Drop] Levothyroxine Sodium [Synthroid] 112.5 mcg PO SUSA 02/08/21 07/13/23 Calcium Carbonate/Vitamin D3 1 tab PO BID 11/25/21 07/13/23 [Calcium 600 mg-D3 20 mcg (800 unit)] Levothyroxine Sodium [Synthroid] 75 mcg PO MOTUWETHFR 11/25/21 07/13/23 Metoprolol Succinate (ER) [Toprol 50 mg PO HS 11/25/21 07/13/23 XL] amLODIPine BESYLATE 5 mg PO HS 11/25/21 07/13/23 Albuterol Sulfate [Albuterol 2 puff INHALATION QID PRN 03/20/22 07/13/23 Sulfate Hfa] hydroCHLOROthiazide [Hydrodiuril] 25 mg PO DAILY 03/20/22 07/13/23 Albuterol Nebulized [Ventolin 2.5 mg INHALATION Q6H PRN 01/17/23 07/13/23 Nebulized] Losartan Potassium [Cozaar] 100 mg PO DAILY 01/17/23 07/13/23 Clopidogrel [Plavix] 75 mg PO DAILY 07/13/23 07/13/23 Famotidine 40 mg PO BID 07/13/23 07/13/23 Previous Rx's Medication Instructions Recorded Aspirin 81 mg PO DAILY #90 tab 01/24/23 Atorvastatin Calcium [Lipitor] 80 mg PO DAILY #90 tablet 01/24/23 Amoxic-Pot Clav 400-57Mg/5Ml 10 ml PO Q12H #200 ml 07/19/23 [Augmentin 400-57 mg/5 ml Susp] Chlorhexidine Gluconate [Peridex] 15 ml PO BID #473 ml 07/19/23 Oseltamivir [Tamiflu] 75 mg PO Q12HR 5 Days #10 cap 11/24/23 predniSONE 50 mg PO DAILY #5 tab 11/24/23 Allergies Allergy/AdvReac Type Severity Reaction Status Date / Time adhesive tape Allergy SKIN Verified 11/24/23 08:50 BLISTERS Review of Systems ROS Statement: Those systems with pertinent positive or pertinent negative responses have been documented in the HPI. ROS Other: All systems not noted in ROS Statement are negative. Past Medical History Past Medical History: Cancer, COPD, GERD/Reflux, Hyperlipidemia, Hypertension, Thyroid Disorder Additional Past Medical History / Comment(s): R breast cancer with mastectomy (2017)., hypothyroid History of Any Multi-Drug Resistant Organisms: None Reported Past Surgical History: Breast Surgery, Heart Catheterization With Stent, Hysterectomy, Tonsillectomy Additional Past Surgical History / Comment(s): R breast biopsy, R breast lumpectomy, R masectomy, R arm muscle biopsy ., D&C, LEEP, Total hysterectomy. COLONOSCOPY Past Anesthesia/Blood Transfusion Reactions: Postoperative Nausea & Vomiting (PONV) Additional Past Anesthesia/Blood Transfusion Reaction / Comment(s): Severe PONV. Date of Last Stent Placement:: 01/23/23 Past Psychological History: Anxiety, Depression Smoking Status: Former smoker Past Alcohol Use History: None Reported Past Drug Use History: None Reported - Past Family History Mother Family Medical History: No Reported History Additional Family Medical History / Comment(s): Mother from heart problems at the age of 77yrs. Father Family Medical History: COPD Additional Family Medical History / Comment(s): Father at the age of 86yrs. General Exam Limitations: no limitations General appearance: alert, in no apparent distress Head exam: Present: atraumatic, normocephalic Eye exam: Present: normal appearance, PERRL ENT exam: Present: normal exam Neck exam: Present: normal inspection. Absent: meningismus Respiratory exam: Present: wheezes, decreased breath sounds. Absent: respiratory distress Cardiovascular Exam: Present: regular rate, normal rhythm GI/Abdominal exam: Present: soft. Absent: distended, tenderness, guarding Extremities exam: Present: normal inspection, normal capillary refill. Absent: pedal edema, calf tenderness Neurological exam: Present: alert, oriented X3, CN II-XII intact. Absent: motor sensory deficit Psychiatric exam: Present: normal affect, normal mood Skin exam: Present: warm, dry, intact. Absent: cyanosis, diaphoretic Course Vital Signs 11/24/23 11/24/23 11/24/23 08:47 11:44 11:55 Temperature 98.1 F Pulse Rate 83 77 78 Respiratory 24 18 18 Rate Blood Pressure 113/77 O2 Sat by Pulse 91 L Oximetry - Reevaluation(s) Reevaluation #1: 11/24/23 12:30 I attempt to convince this patient to stay for in-hospital treatment she declines. Medical Decision Making - Medical Decision Making Was pt. sent in by a medical professional or institution (, PA, FINISHED METAL REPAIRER, urgent care, hospital, or shelter...) When possible be specific @ -No Did you speak to anyone other than the patient for history (EMS, parent, family, police, friend...)? What history was obtained from this source @ -No Did you review nursing and triage notes (agree or disagree)? Why? @ -I reviewed and agree with nursing and triage notes Were old charts reviewed (outside hosp., previous admission, EMS record, old EKG, old radiological studies, urgent care reports/EKG's, shelter records)? Report findings @ -No old charts were reviewed Differential Diagnosis (chest pain, altered mental status, abdominal pain women, abdominal pain men, vaginal bleeding, weakness, fever, dyspnea, syncope, headache, dizziness, GI bleed, back pain, seizure, CVA, palpatations, mental health, musculoskeletal)? @ -[Differential Dyspnea: Coronary syndrome, arrhythmia, tamponade, asthma, COPD, pulmonary embolism, pneumonia, pneumothorax, pulmonary effusion, anaphylaxis, diabetic ketoacidosis, flailed chest, pulmonary contusion, diaphragmatic rupture, anemia, neuromuscular, this is not meant to be an all-inclusive list. EKG interpreted by me (3pts min.). @Sinus rhythm rate of 74, NV interval 154, QRS duration 90, QTC [address] segment elevation. X-rays interpreted by me (1pt min.). @No pneumothorax, no focal pneumonia, small left pleural effusion CT interpreted by me (1pt min.). @ -None done U/S interpreted by me (1pt. min.). @ -None done What testing was considered but not performed or refused? (CT, X-rays, U/S, labs)? Why? @ -None What meds were considered but not given or refused? Why? @ -None Did you discuss the management of the patient with other professionals (professionals i.e. , PA, FINISHED METAL REPAIRER, lab, RT, psych nurse, social media content specialist, radial drill operator for plastic, teacher, complaint evaluation officer, case management coordinator)? Give summary @ -No Was smoking cessation discussed for >3mins.? @ -No Was critical care preformed (if so, how long)? @ -No Were there social determinants of health that impacted care today? How? (Homelessness, low income, unemployed, alcoholism, drug addiction, transportation, low edu. Level, literacy, decrease access to med. care, shelter, rehab)? @ -No Was there de-escalation of care discussed even if they declined (Discuss DNR or withdrawal of care, Hospice)? DNR status @ -No What co-morbidities impacted this encounter? (DM, HTN, Smoking, COPD, CAD, Cancer, CVA, ARF, Chemo, Hep., AIDS, mental health diagnosis, sleep apnea, morbid obesity)? @ -[COPD. Was patient admitted / discharged? Hospital course, mention meds given and route , prescriptions, significant lab abnormalities, going to OR and other pertinent info. @ -[68-year-old female with 4 days of cough, congestion. Patient has low oxygen at 91 on room air without significant respiratory distress. Chest x-rays negative for focal pneumonia. The patient does test positive for influenza A. She's given steroids, albuterol, Atrovent, and Tamiflu in the emergency department. She is adamant that she will not stay in the hospital. I did plan admission for this patient but she declines. She is discharged with oral steroids and Tamiflu with strict return parameters. Undiagnosed new problem with uncertain prognosis? @ -No Drug Therapy requiring intensive monitoring for toxicity (Heparin, Nitro, Insulin, Cardizem)? @ -No Were any procedures done? @ -No Diagnosis/symptom? @Influenza A, COPD exacerbation Acute, or Chronic, or Acute on Chronic? @ Acute Uncomplicated (without systemic symptoms) or Complicated (systemic symptoms)? @ -default Side effects of treatment? @ -No Exacerbation, Progression, or Severe Exacerbation? @ -No] Poses a threat to life or bodily function? How? (Chest pain, USA, NE, pneumonia, PE, COPD, DKA, ARF, appy, cholecystitis, CVA, Diverticulitis, Homicidal, Suicidal, threat to staff... and all critical care pts) @ Moderate risk, COPD, respiratory failure - Lab Data Result diagrams: 11/24/23 09:52 11/24/23 09:52 Lab Results 11/24/23 11/24/23 11/24/23 Range/Units 09:52 09:52 09:52 WBC 11.9 H (3.8-10.6) k/uL RBC 3.93 (3.80-5.40) m/uL Hgb 12.9 (11.4-16.0) gm/dL Hct 38.5 (34.0-46.0) % MCV 97.8 (80.0-100.0) fL MCH 32.7 (25.0-35.0) pg MCHC 33.5 (31.0-37.0) g/dL RDW 13.1 (11.5-15.5) % Plt Count 237 (150-450) k/uL MPV 7.6 Neutrophils % 85 % Lymphocytes % 8 % Monocytes % 4 % Eosinophils % 2 % Basophils % 0 % Neutrophils # 10.1 H (1.3-7.7) k/uL Lymphocytes # 1.0 (1.0-4.8) k/uL Monocytes # 0.5 (0-1.0) k/uL Eosinophils # 0.2 (0-0.7) k/uL Basophils # 0.0 (0-0.2) k/uL Sodium 128 L (137-145) mmol/L Potassium 3.1 L (3.5-5.1) mmol/L Chloride 93 L (98-107) mmol/L Carbon Dioxide 23 (22-30) mmol/L Anion Gap 12 mmol/L BUN 9 (7-17) mg/dL Creatinine 0.62 (0.52-1.04) mg/dL Est GFR (CKD-EPI)AfAm >90 (>60 ml/min/1.73 sqM) Est GFR (CKD-EPI)NonAf >90 (>60 ml/min/1.73 sqM) Glucose 119 H (74-99) mg/dL Calcium 9.3 (8.4-10.2) mg/dL Total Bilirubin 0.4 (0.2-1.3) mg/dL AST 30 (14-36) U/L ALT 29 (4-34) U/L Alkaline Phosphatase 103 (38-126) U/L Total Protein 6.2 L (6.3-8.2) g/dL Albumin 3.7 (3.5-5.0) g/dL Influenza Type A (PCR) Detected A (Not Detectd) Influenza Type B (PCR) Not Detected (Not Detectd) RSV (PCR) Not Detected (Not Detectd) SARS-CoV-2 (PCR) Not Detected (Not Detectd) Disposition Clinical Impression: Acute exacerbation of chronic obstructive pulmonary disease, Influenza A Disposition: HOME SELF-CARE Condition: Fair Instructions (If sedation given, give patient instructions): COPD (Chronic Obstructive Pulmonary Disease) (ED), Influenza (ED) Prescriptions: predniSONE 50 mg PO DAILY #5 tab Oseltamivir [Tamiflu] 75 mg PO Q12HR 5 Days #10 cap Is patient prescribed a controlled substance at d/c from ED?: No Referrals: Isaias Hagen DO [Primary Care Provider] - 1-2 days
[2023-11-24] MEDS ORDERED: predniSONE 50 MG TAB PO STA (12:28)
[2023-11-24 12:42] VITALS: BP 136/76; PULSE 83; RESP 20; TEMP 97.3
== END 2023-11-24 12:54 | disposition home or self-care (01) ==
LOC: EC 08:44
DX: J44.1 Chronic obstructive pulmonary disease with (acute) exacerbation (principal); J10.1 Influenza due to other identified influenza virus with other respiratory manifestations; I10 Essential (primary) hypertension; E03.9 Hypothyroidism, unspecified; F41.9 Anxiety disorder, unspecified; F32.A Depression, unspecified; Z87.891 Personal history of nicotine dependence; Z79.890 Hormone replacement therapy; Z79.899 Other long term (current) drug therapy; Z91.09 Other allergy status, other than to drugs and biological substances; Z20.822 Contact with and (suspected) exposure to COVID-19; Z79.02 Long term (current) use of antithrombotics/antiplatelets
CPT/HCPCS: 36415; 94640; 93005; 80053; 85025; 87636; 71046; 99285; J7512

== ENCOUNTER → 2024-01-16 | Outpatient (CLI) | payer MEDICARE, BC ==
[2024-01-16 16:50] LABS: Basophils # (A) 0.08 X 10*3/uL (0.00-0.10); Basophils % (A) 0.7 %; Eosinophils # (A) 0.16 X 10*3/uL (0.04-0.35); Eosinophils % (A) 1.5 %; HGB 12.4 g/dL (12.0-15.0); Lymphocytes # (A) 2.31 X 10*3/uL (0.90-5.00); Lymphocytes % (A) 21.2 %; MCHC 32.6 g/dL (32.0-37.0); MCV 98.2 FL (80.0-97.0); Mean Platelet Volume 10.3 FL (9.5-12.2); Monocytes # (A) 0.99 X 10*3/uL (0.20-1.00); Monocytes % (A) 9.1 %; NRBC Per 100 WBC 0 X 10*3/uL (0.00-0.01); Platelet Count 353 X 10*3/uL (140-440); RBC 3.87 X 10*6/uL (4.10-5.20); RDW 14.8 % (11.5-14.5); WBC 10.89 X 10*3/uL (4.50-10.00)
[2024-01-17 14:49] LABS: Alt. alternata IgE Class CLASS 2; Asperg. fumagatus IgE <0.10 kU/L (<0.10); Asperg. fumagatus IgE Class CLASS 0; Bermuda Grass IgE 1.88 kU/L (<0.10); Birch(Com.Silvr) IgE <0.10 kU/L (<0.10); Birch(Com.Silvr) IgE Class CLASS 0; Cat Epith & Dander IgE Class CLASS 4; Clad herbarum IgE <0.10 kU/L (<0.10); Clad herbarum IgE Class CLASS 0; Cockroach IgE <0.10 kU/L (<0.10); Cottonwood IgE <0.10 kU/L (<0.10); Dermato. Pteronyssinus Class CLASS 0; Dermato. Pteronyssinus IgE <0.10 kU/L (<0.10); Dermato. farinae IgE <0.10 kU/L (<0.10); Dermato. farinae IgE Class CLASS 0; Dog Dander IgE 9.67 kU/L (<0.10); Elm IgE <0.10 kU/L (<0.10); Maple (Box Elder) IgE 1.19 kU/L (<0.10); Maple (Box Elder) IgE Class CLASS 2; Mountain Cedar IgE <0.10 kU/L (<0.10); Mountain Cedar IgE Class CLASS 0; Mouse Urine IgE Class CLASS 2; Mouse Urine Proteins,IgE 0.81 kU/L (<0.10); Nettle IgE <0.10 kU/L (<0.10); Nettle IgE Class CLASS 0; Oak IgE <0.10 kU/L (<0.10); Penicillium chrysogenum IgE <0.10 kU/L (<0.10); Penicillium chrysogenum IgE Cl CLASS 0; Rough Marshelder IgE <0.10 kU/L (<0.10); Rough Marshelder IgE Class CLASS 0; Timothy Grass IgE 4.81 kU/L (<0.10); Timothy Grass IgE Class CLASS 3; White Ash IgE Class CLASS 0
== END | disposition home or self-care (01) ==
LOC: LABWHC1 08:00
PROVIDERS: ATTEND Internal Medicine Pulmonary Disease
DX: J44.89 Other specified chronic obstructive pulmonary disease (principal); R06.02 Shortness of breath; R53.83 Other fatigue
CPT/HCPCS: 36415; 82103; 82104; 82785; 85025; 86001; 86003; 86606; 86609

== ENCOUNTER 2024-03-20 07:14 | Day surgery (SDC) | payer MEDICARE, BC ==
[2024-03-20] MEDS: LACTATED RINGERS 1,000 ML IV SCH (07:46)
[2024-03-20 07:53] VITALS: TEMP 96.8
[2024-03-20 07:55] LABS: Glucose,Whole Blood 98 mg/dL (70-110)
--- NOTE | 2024-03-20 08:02 | P.GSHP ---
History of Present Illness H&P Date: 03/20/24 CHIEF COMPLAINT: Esophageal stricture HISTORY OF PRESENT ILLNESS: The patient is a 68-year-old female who presents reports dysphagia. Upper endoscopy was offered for further evaluation and management. PAST MEDICAL HISTORY: Please see list. PAST SURGICAL HISTORY: Please see list. MEDICATIONS: Please see list. ALLERGIES: Please see list. SOCIAL HISTORY: No illicit drug use FAMILY HISTORY: No reports of Crohn disease or ulcerative colitis. REVIEW OF ORGAN SYSTEMS: CONSTITUTIONAL: No reports of fevers or chills. GI: Denies any blood in stools or constipation. PHYSICAL EXAM: VITAL SIGNS: Stable GENERAL: Well-developed and pleasant in no acute distress. HEENT: No scleral icterus. Extraocular movements grossly intact. Moist buccal mucosa. NECK: Supple without lymphadenopathy. CHEST: Unlabored respirations. Equal bilateral excursions. CARDIOVASCULAR: Regular rate and rhythm. Distal 2+ pulses. ABDOMEN: Soft, nondistended. MUSCULOSKELETAL: No clubbing, cyanosis, or edema. ASSESSMENT: 1. Esophageal stricture PLAN: 1. Recommend proceeding with an upper endoscopy with rigid dilators. Past Medical History Past Medical History: Coronary Artery Disease (CAD), Cancer, COPD, Eye Disorder, GERD/Reflux, Hyperlipidemia, Hypertension, Thyroid Disorder Additional Past Medical History / Comment(s): Esophageal stricture. R breast cancer with mastectomy (2017)., hypothyroid, glaucoma History of Any Multi-Drug Resistant Organisms: None Reported Past Surgical History: Breast Surgery, Heart Catheterization With Stent, Hysterectomy, Tonsillectomy Additional Past Surgical History / Comment(s): R breast biopsy, R breast lumpectomy, R masectomy, R arm muscle biopsy ., D&C, LEEP, Total hysterectomy. COLONOSCOPY, EGD with dilatation Past Anesthesia/Blood Transfusion Reactions: Postoperative Nausea & Vomiting (PONV) Additional Past Anesthesia/Blood Transfusion Reaction / Comment(s): Severe PONV. Date of Last Stent Placement:: 01/23/23 Smoking Status: Former smoker - Past Family History Mother Family Medical History: No Reported History Additional Family Medical History / Comment(s): Mother from heart problems at the age of 77yrs. Father Family Medical History: COPD Additional Family Medical History / Comment(s): Father at the age of 86yrs. Medications and Allergies Home Medications Medication Instructions Recorded Confirmed Type ALPRAZolam [Xanax] 0.25 mg PO BID PRN 09/22/17 04/25/24 History Sertraline [Zoloft] 100 mg PO HS 09/06/18 03/20/24 History Latanoprost/Pf [Latanoprost 0.005% 1 drop BOTH EYES HS 02/08/21 03/20/24 History Eye Drop] Levothyroxine Sodium [Synthroid] 112.5 mcg PO SUSA 02/08/21 03/20/24 History Levothyroxine Sodium [Synthroid] 75 mcg PO MOTUWETHFR 11/25/21 03/20/24 History Metoprolol Succinate (ER) [Toprol 50 mg PO HS 11/25/21 03/20/24 History XL] amLODIPine BESYLATE 5 mg PO HS 11/25/21 03/20/24 History Albuterol Sulfate [Albuterol 2 puff INHALATION QID PRN 03/20/22 03/20/24 History Sulfate Hfa] hydroCHLOROthiazide [Hydrodiuril] 25 mg PO QAM 03/20/22 03/20/24 History Albuterol Nebulized [Ventolin 2.5 mg INHALATION Q6H PRN 01/17/23 03/20/24 History Nebulized] Losartan Potassium [Cozaar] 100 mg PO QAM 01/17/23 03/20/24 History Clopidogrel [Plavix] 75 mg PO HS 07/13/23 03/20/24 History Famotidine 40 mg PO BID 07/13/23 03/20/24 History Aspirin 81 mg PO QAM 03/14/24 03/20/24 History Atorvastatin Calcium [Lipitor] 80 mg PO HS 03/14/24 03/20/24 History Fluticasone/Umeclidin/Vilanter 1 puff INHALATION QAM 03/14/24 03/20/24 History [Trelegy Ellipta 200-62.5-25] Ipratropium-Albuterol Nebulize 1 dose INHALATION BID 03/14/24 03/20/24 History [Duoneb 0.5 mg-3 mg/3 ml Soln] predniSONE 0.5 mg PO QAM 03/14/24 03/20/24 History Allergies Allergy/AdvReac Type Severity Reaction Status Date / Time adhesive tape Allergy SKIN Verified 03/20/24 07:33 BLISTERS Surgical - Exam Vital Signs Temp Pulse Resp BP Pulse Ox 96.8 F L 78 20 137/73 94 L 03/20/24 07:36 03/20/24 07:36 03/20/24 07:36 03/20/24 07:36 03/20/24 07:36
[2024-03-20] MEDS ORDERED: PROPOFOL 10 MG/ML 20 ML VIAL IV ONE (08:03)
[2024-03-20] MEDS ORDERED: LIDOCAINE 1% INJ 10MG/ML (20 ML MDV) ONE (08:03)
--- NOTE | 2024-03-20 08:24 | P.PCN ---
Date of Procedure: 03/20/24 Description of Procedure: PREOPERATIVE DIAGNOSIS: Dysphagia. Gastroesophageal reflux disease Esophageal stricture POSTOPERATIVE DIAGNOSIS: Dysphagia. Gastroesophageal reflux disease Esophageal stricture Hypertensive upper esophageal sphincter gastritis OPERATION: Esophagogastroduodenoscopy with rigid dilator over the guidewire 48 Fr. SURGEON: Jordyn Velázquez MD ANESTHESIA: MAC. INDICATIONS: The patient is a 68-year-old male who presents with a history of dysphagia. Benefits and risks of the procedure were described. Informed consent was obtained. DESCRIPTION: The patient was brought into the endoscopy suite and laid in the left lateral decubitus position. After a timeout was confirmed, the procedure was initiated. An Olympus gastroscope was passed and the stomach was entered. Mild gastritis was identified. The scope was advanced to the duodenum which was unremarkable. Retroflexion the scope confirmed a Hill grade 2 lower esophageal valve. Next using an Serbian rigid dilator, a guidewire was placed through the pediatric gastroscope. Next the scope was withdrawn. A 48-Jamaican rigid Serbian dilator was passed carefully along the posterior oropharynx to 45 cm and left in place for 2-3 minutes stretch. The dilator was withdrawn including the guidewire. The scope was reentered along the posterior oropharynx with no findings of full-thickness tear of the upper esophageal sphincter. No full-thickness injury was encountered. The GI tract was desufflated. The patient tolerated the procedure well. FINDINGS: Squamocolumnar junction unremarkable at 38 cm. Upper esophageal stricture without ulceration Serbian rigid dilator 48-Jamaican completed. No hiatus hernia Diffuse gastritis. Hill grade 2 lower esophageal valve. LA grade A esophagitis. RECOMMENDATIONS: Upper endoscopy as needed Plan - Discharge Summary Discharge Rx Participant: No New Discharge Prescriptions: Continue ALPRAZolam [Xanax] 0.25 mg PO BID PRN PRN Reason: Anxiety Sertraline [Zoloft] 100 mg PO HS Latanoprost/Pf [Latanoprost 0.005% Eye Drop] 1 drop BOTH EYES HS Levothyroxine Sodium [Synthroid] 112.5 mcg PO SUSA Losartan Potassium [Cozaar] 100 mg PO QAM Albuterol Nebulized [Ventolin Nebulized] 2.5 mg INHALATION Q6H PRN PRN Reason: Shortness Of Breath Or Wheezing Famotidine 40 mg PO BID Clopidogrel [Plavix] 75 mg PO HS predniSONE 0.5 mg PO QAM Atorvastatin Calcium [Lipitor] 80 mg PO HS Ipratropium-Albuterol Nebulize [Duoneb 0.5 mg-3 mg/3 ml Soln] 1 dose INHALATION BID Levothyroxine Sodium [Synthroid] 75 mcg PO MOTUWETHFR Metoprolol Succinate (ER) [Toprol XL] 50 mg PO HS amLODIPine BESYLATE 5 mg PO HS hydroCHLOROthiazide [Hydrodiuril] 25 mg PO QAM Albuterol Sulfate [Albuterol Sulfate Hfa] 2 puff INHALATION QID PRN PRN Reason: Shortness Of Breath Fluticasone/Umeclidin/Vilanter [Trelegy Ellipta 200-62.5-25] 1 puff INHALATION QAM Aspirin 81 mg PO QAM Discharge Medication List ALPRAZolam [Xanax] 0.25 mg PO BID PRN 08/17/17 [History] Sertraline [Zoloft] 100 mg PO HS 09/06/18 [History] Latanoprost/Pf [Latanoprost 0.005% Eye Drop] 1 drop BOTH EYES HS 02/08/21 [History] Levothyroxine Sodium [Synthroid] 112.5 mcg PO SUSA 02/08/21 [History] Levothyroxine Sodium [Synthroid] 75 mcg PO MOTUWETHFR 11/25/21 [History] Metoprolol Succinate (ER) [Toprol XL] 50 mg PO HS 11/25/21 [History] amLODIPine BESYLATE 5 mg PO HS 11/25/21 [History] Albuterol Sulfate [Albuterol Sulfate Hfa] 2 puff INHALATION QID PRN 03/20/22 [History] hydroCHLOROthiazide [Hydrodiuril] 25 mg PO QAM 03/20/22 [History] Albuterol Nebulized [Ventolin Nebulized] 2.5 mg INHALATION Q6H PRN 01/17/23 [History] Losartan Potassium [Cozaar] 100 mg PO QAM 01/17/23 [History] Clopidogrel [Plavix] 75 mg PO HS 07/13/23 [History] Famotidine 40 mg PO BID 07/13/23 [History] Aspirin 81 mg PO QAM 03/14/24 [History] Atorvastatin Calcium [Lipitor] 80 mg PO HS 03/14/24 [History] Fluticasone/Umeclidin/Vilanter [Trelegy Ellipta 200-62.5-25] 1 puff INHALATION QAM 03/14/24 [History] Ipratropium-Albuterol Nebulize [Duoneb 0.5 mg-3 mg/3 ml Soln] 1 dose INHALATION BID 03/14/24 [History] predniSONE 0.5 mg PO QAM 03/14/24 [History] Follow up Appointment(s)/Referral(s): Jordyn Velázquez MD [STAFF PHYSICIAN] - 04/01/24 11:30 am Patient Instructions/Handouts: Esophageal Dilation (GEN) Activity/Diet/Wound Care/Special Instructions: START BLOOD THINNER 03/22/24. Warm beverages today. Soft diet tomorrow Discharge Disposition: HOME SELF-CARE
[2024-03-20 08:42] VITALS: BP 99/63; PULSE 66; RESP 16
== END 2024-03-20 08:52 | disposition home or self-care (01) ==
LOC: ORWHC2ENDO 07:14
PROVIDERS: ATTEND Surgery Plastic and Reconstructive Surgery
DX: K22.2 Esophageal obstruction (principal); K29.50 Unspecified chronic gastritis without bleeding; K21.00 Gastro-esophageal reflux disease with esophagitis, without bleeding; I10 Essential (primary) hypertension; I25.10 Atherosclerotic heart disease of native coronary artery without angina pectoris; J44.9 Chronic obstructive pulmonary disease, unspecified; E78.5 Hyperlipidemia, unspecified; E03.9 Hypothyroidism, unspecified; Z79.02 Long term (current) use of antithrombotics/antiplatelets; Z85.3 Personal history of malignant neoplasm of breast; Z95.5 Presence of coronary angioplasty implant and graft; Z90.710 Acquired absence of both cervix and uterus; Z90.89 Acquired absence of other organs; Z87.891 Personal history of nicotine dependence; Z79.51 Long term (current) use of inhaled steroids; Z79.899 Other long term (current) drug therapy; Z79.52 Long term (current) use of systemic steroids; Z79.82 Long term (current) use of aspirin
CPT/HCPCS: 43248; J2001; J2704

== ENCOUNTER → 2024-04-15 | Outpatient (CLI) | payer MEDICARE, BC ==
--- NOTE | 2024-04-22 09:42 | MM ---
Reason for Exam: Screening (asymptomatic). Last screening mammogram was performed 12 month(s) ago. Patient History: Menarche at age 13. First Full-Term at age 20. Left ovary removed at age 62. Right ovary removed at age 62. Hysterectomy at age 62. Postmenopausal. Breast cancer, age 61. Patient used Hormonal Contraceptives for 5 years. 2017, Mastectomy on the Right side. 2017, Mastectomy on the Right side. 02/20/2017, Malignant Core Biopsy on the right side. 02/20/2017, Malignant Core Biopsy on the right side. 01/24/2017, Malignant Core Biopsy on the right side. 01/24/2017, Malignant Core Biopsy on the right side. 01/24/2017, Malignant Core Biopsy on the right side. Niece had breast cancer, age 44. Prior Study Comparison: 06/28/2021 Left Diagnostic Mammogram, [facility]. 03/13/2022 Bilateral Screening Mammogram, [facility]. 04/09/2023 Left MG 3D scr andrea unilateral w/cad., [facility]. Tissue Density: There are scattered areas of fibroglandular density. Findings: Analyzed By CAD. There is no suspicious group of microcalcifications or new suspicious mass in either breast. Benign-appearing calcifications. Overall Assessment: Benign, BI-RAD 2 Management: Screening Mammogram of the left breast in 1 year. . Patient should continue monthly self-breast exams. A clinical breast exam by your physician is recommended on an annual basis. This exam should not preclude additional follow-up of suspicious palpable abnormalities. Note on Rosie scores and lifetime risk: 1. A Rosie score greater than 3% is considered moderate risk. If this is the case, consider specialist referral to assess eligibility for a risk reducing agent. 2. If overall lifetime risk for the development of breast cancer is 20% or higher, the patient may qualify for future screening with alternating mammogram and breast MRI. Electronically signed and approved by: Jackson Garcia M.D. Radiologis
== END | disposition home or self-care (01) ==
LOC: RADMAMWWP 07:25
PROVIDERS: ATTEND Internal Medicine Hematology & Oncology
DX: Z12.31 Encounter for screening mammogram for malignant neoplasm of breast (principal); Z78.0 Asymptomatic menopausal state; Z85.3 Personal history of malignant neoplasm of breast; Z90.11 Acquired absence of right breast and nipple; Z80.3 Family history of malignant neoplasm of breast
CPT/HCPCS: 77067

== ENCOUNTER → 2025-02-05 | Outpatient (CLI) | payer MEDICARE, BC ==
--- NOTE | 2025-02-05 14:22 | US ---
EXAMINATION TYPE: US venous doppler duplex LE LT DATE OF EXAM: 02/05/2025 2:14 PM COMPARISON: NONE CLINICAL INDICATION: Female, 69 years old with history of R22.40 SWELLING, MASS AND LUMP; edema, Pain TECHNIQUE: The lower extremity deep venous system is examined utilizing real time linear array sonog orly with graded compression, color doppler sonography, and spectral doppler. SIDE PERFORMED: Left FINDINGS: VESSELS IMAGED: Common Femoral Vein Deep Femoral Vein Greater Saphenous Vein * Femoral Vein Popliteal Vein Small Saphenous Vein * Proximal Calf Veins (* superficial vessels) Left Leg: Negative for DVT, Color Doppler imaging shows patency of the vessels. Spectral waveforms a re within normal limits. IMPRESSION: 1. No evidence of deep vein thrombosis of the left lower extremity. [facility], , 02/05/2025 2:20 PM
== END | disposition home or self-care (01) ==
LOC: RADUSWWP 13:55
PROVIDERS: ATTEND Family Medicine
DX: R22.42 Localized swelling, mass and lump, left lower limb (principal)